=== PATIENT | female | born 1930 | race Caucasian/White ===

== ENCOUNTER → 2017-07-02 | Outpatient (CLI) | payer MEDICARE, BC ==
--- NOTE | 2017-07-02 15:31 | US ---
EXAMINATION TYPE: US kidneys/renal and bladder DATE OF EXAM: 07/02/2017 COMPARISON: US 03/08/2014 CLINICAL HISTORY: N39.0 Urinary Tract Infection. EXAM MEASUREMENTS: Right Kidney: 10.2 x 3.5 x 4.3 cm Left Kidney: 11.0 x 3.5 x 4.4 cm Post Void Residual Volume: 33.9 mL Right Kidney: Nodular contour. Pelvocaliectasis is noted without sheldon hydronephrosis. This finding i s unchanged in comparison to the prior of 03/08/2014. No cystic or solid mass visualized Left Kidney: Nodular contour. Cyst visualized lower pole measuring 1.4 x 1.5 x 1.2 cm Bladder: wnl Bilateral Jets seen: Yes Normal Post Void Residual: Yes IMPRESSION: 1.5 cm left renal cyst, similar to the exam of 03/08/2014. Right-sided pelvocaliectasis is also unchan ged dating back to 2013. No evidence of hydronephrosis or nephrolithiasis.
== END | disposition home or self-care (01) ==
LOC: RADUSWWP 12:28
PROVIDERS: ATTEND Urology
DX: N28.1 Cyst of kidney, acquired (principal); N28.89 Other specified disorders of kidney and ureter; Z87.440 Personal history of urinary (tract) infections
CPT/HCPCS: 76770

== ENCOUNTER → 2017-10-29 | Outpatient (CLI) | payer MEDICARE, BC ==
--- NOTE | 2017-10-30 10:39 | MM ---
Reason for exam: screening (asymptomatic). Last mammogram was performed 1 year and 4 months ago. History: Patient is postmenopausal. Benign excisional biopsy of the right breast, 2003. Took estrogen for 18 years beginning at age 55. Physical Findings: A clinical breast exam by your physician is recommended on an annual basis and results should be correlated with mammographic findings. MG 3D Screening Mammo W/Cad Bilateral CC and MLO view(s) were taken. Prior study comparison: July 15, 2016, bilateral MG 3d screening mammo w/cad. July 13, 2015, bilateral MG screening mammo w CAD. The breast tissue is heterogeneously dense. This may lower the sensitivity of mammography. Stable benign calcifications. There is no discrete abnormality. No significant changes when compared with prior studies. ASSESSMENT: Benign, BI-RAD 2 RECOMMENDATION: Routine screening mammogram of both breasts in 1 year.
== END | disposition home or self-care (01) ==
LOC: RADMAMWWP 10:50
PROVIDERS: ATTEND Internal Medicine
DX: Z12.31 Encounter for screening mammogram for malignant neoplasm of breast (principal)
CPT/HCPCS: 77063; 77067

== ENCOUNTER → 2018-01-21 | Outpatient (CLI) | payer MEDICARE, BC ==
--- NOTE | 2018-01-21 14:03 | US ---
EXAMINATION TYPE: US kidneys/renal and bladder DATE OF EXAM: 01/21/2018 COMPARISON: US 07/02/17 and exam of 2013 CLINICAL HISTORY: N18.3 chronic kidney disease stage 3. EXAM MEASUREMENTS: Right Kidney: 10.1 x 4.3 x 3.8 cm Left Kidney: 12.0 x 4.0 x 3.7 cm Post Void Residual Volume: 32.2 mL Right Kidney: Mildly dilated renal pelvis seen dating back to 2013. Left Kidney: Lower, Lateral cyst = 1.6 x 1.3 x 1.5 cm as seen on the prior exam measuring 1.5 x 1.2 x 1.4 cm at that time. Mildly dilated renal pelvis. Bladder: wnl Bilateral Jets seen: Yes Normal Post Void Residual: Yes No nephrolithiasis is seen. The urinary bladder is anechoic. Bilateral ureteral jets are seen. IMPRESSION: Overall stable left renal cyst and right pelvic caliectasis dealing back to 2013 with new left-sided pelvocaliectasis and no discrete hydronephrosis.
== END | disposition home or self-care (01) ==
LOC: RADUSWWP 12:29
PROVIDERS: ATTEND Internal Medicine Nephrology
DX: N28.1 Cyst of kidney, acquired (principal); N28.89 Other specified disorders of kidney and ureter; N18.3 Chronic kidney disease, stage 3 (moderate)
CPT/HCPCS: 76770

== ENCOUNTER 2018-10-28 12:58 | Emergency (ER) | payer MEDICARE, BC ==
[2018-10-28 13:05] VITALS: RESP 18
[2018-10-28] MEDS ORDERED: SODIUM CHLORIDE 0.9% 500 ML 500 ML IV STA (13:17)
[2018-10-28 13:48] LABS: Basophils % (A) 1 %; Eosinophils # (A) 0.1 k/uL (0-0.7); Eosinophils % (A) 3 %; HCT 36.8 % (34.0-46.0); HGB 11.9 gm/dL (11.4-16.0); Lymphocytes # (A) 0.8 k/uL (1.0-4.8); Lymphocytes % (A) 19 %; MCHC 32.4 g/dL (31.0-37.0); MCV 89.4 fL (80.0-100.0); Mean Platelet Volume 7.5; Monocytes # (A) 0.3 k/uL (0-1.0); Monocytes % (A) 7 %; Neutrophils # (A) 2.9 k/uL (1.3-7.7); Neutrophils % (A) 67 %; Platelet Count 121 k/uL (150-450); RBC 4.12 m/uL (3.80-5.40); RDW 13.8 % (11.5-15.5); WBC 4.3 k/uL (3.8-10.6)
--- NOTE | 2018-10-28 13:54 | ED ---
Weakness HPI - General Chief complaint: Weakness Stated complaint: Fall,high bp Time Seen by Provider: 10/28/18 13:09 Source: patient, family, RN notes reviewed Mode of arrival: wheelchair Limitations: physical limitation - History of Present Illness Initial comments: 87-year-old female presents emergency Department for near syncopal event. Patient states she was upstairs seen her advised to her brother who just . She states that she became very weakened and legs and states that family members lowered her down. Patient no loss conscious. She denies any current chest pain, shortness breath, headache, dizziness, nausea vomiting. She states that she feels completely normal and this time. She did state that she was very worked up at that time. - Related Data Home Medications Medication Instructions Recorded Confirmed Aspirin 81 mg PO DAILY 02/03/15 10/28/18 Atenolol [Tenormin] 50 mg PO BID 02/03/15 10/28/18 Ipratropium/Albuterol Sulfate 1 puff INHALATION RT-QID 02/03/15 10/28/18 [Combivent Respimat Inhaler] Lactobacillus Acidophilus 1 tab PO DAILY 02/03/15 10/28/18 [Acidophilus] Levothyroxine Sodium [Synthroid] 100 mcg PO DAILY 02/03/15 10/28/18 Montelukast [Singulair] 10 mg PO DAILY 02/03/15 10/28/18 Multivitamins, Thera [Theragran] 1 tab PO DAILY 02/03/15 10/28/18 Fish Oil/Dha/Epa [Fish Oil 1,200 1 cap PO DAILY 10/28/18 10/28/18 mg Fish Oil] Fluticasone/Salmeterol [Advair 1 inhalation PO RT-BID 10/28/18 10/28/18 500-50 Diskus] Allergies Allergy/AdvReac Type Severity Reaction Status Date / Time Sulfa (Sulfonamide Allergy Unknown Verified 10/28/18 13:05 Antibiotics) Review of Systems ROS Statement: Those systems with pertinent positive or pertinent negative responses have been documented in the HPI. ROS Other: All systems not noted in ROS Statement are negative. Past Medical History Past Medical History: Asthma, Diabetes Mellitus, Hypertension, Thyroid Disorder History of Any Multi-Drug Resistant Organisms: None Reported Past Surgical History: Hysterectomy Past Psychological History: No Psychological Hx Reported Smoking Status: Never smoker Past Alcohol Use History: None Reported Past Drug Use History: None Reported General Exam Limitations: physical limitation General appearance: alert, in no apparent distress Head exam: Present: atraumatic, normocephalic, normal inspection Eye exam: Present: normal appearance, PERRL, EOMI. Absent: scleral icterus, conjunctival injection, periorbital swelling ENT exam: Present: normal exam, normal oropharynx, mucous membranes moist Neck exam: Present: normal inspection, full ROM. Absent: tenderness, meningismus, lymphadenopathy Respiratory exam: Present: normal lung sounds bilaterally. Absent: respiratory distress, wheezes, rales, rhonchi, stridor Cardiovascular Exam: Present: regular rate, normal rhythm, normal heart sounds. Absent: systolic murmur, diastolic murmur, rubs, gallop, clicks Neurological exam: Present: alert, oriented X3, CN II-XII intact, reflexes normal. Absent: motor sensory deficit Skin exam: Present: warm, dry, intact, normal color. Absent: rash Course Vital Signs 10/28/18 13:01 Temperature 98.3 F Pulse Rate 61 Respiratory 18 Rate Blood Pressure 185/86 O2 Sat by Pulse 97 Oximetry EKG Findings - EKG Comments: EKG Findings:: EKG performed at 13:25 sinus bradycardia with PAC, rate of 57 WA 162 QRS 86 QT/QTC 450/[address] elevation or depression. Medical Decision Making - Medical Decision Making 87-year-old female presented for near syncopal episode after a loss in the family. Family reports that this is happened several times recently with a in the family. Patient is asymptomatic in emergency department. Laboratory, EKG unremarkable. - Lab Data Result diagrams: 10/28/18 13:20 10/28/18 13:20 Lab Results 10/28/18 10/28/18 10/28/18 Range/Units 13:20 13:20 13:20 WBC 4.3 (3.8-10.6) k/uL RBC 4.12 (3.80-5.40) m/uL Hgb 11.9 (11.4-16.0) gm/dL Hct 36.8 (34.0-46.0) % MCV 89.4 (80.0-100.0) fL MCH 29.0 (25.0-35.0) pg MCHC 32.4 (31.0-37.0) g/dL RDW 13.8 (11.5-15.5) % Plt Count 121 L (150-450) k/uL Neutrophils % 67 % Lymphocytes % 19 % Monocytes % 7 % Eosinophils % 3 % Basophils % 1 % Neutrophils # 2.9 (1.3-7.7) k/uL Lymphocytes # 0.8 L (1.0-4.8) k/uL Monocytes # 0.3 (0-1.0) k/uL Eosinophils # 0.1 (0-0.7) k/uL Basophils # 0.0 (0-0.2) k/uL PT 10.7 (9.0-12.0) sec INR 1.0 (<1.2) APTT 26.0 (22.0-30.0) sec Sodium 138 (137-145) mmol/L Potassium 4.8 (3.5-5.1) mmol/L Chloride 104 (98-107) mmol/L Carbon Dioxide 24 (22-30) mmol/L Anion Gap 10 mmol/L BUN 31 H (7-17) mg/dL Creatinine 1.15 H (0.52-1.04) mg/dL Est GFR (CKD-EPI)AfAm 50 (>60 ml/min/1.73 sqM) Est GFR (CKD-EPI)NonAf 44 (>60 ml/min/1.73 sqM) Glucose 134 H (74-99) mg/dL Calcium 9.9 (8.4-10.2) mg/dL Magnesium 2.0 (1.6-2.3) mg/dL Total Bilirubin 0.5 (0.2-1.3) mg/dL AST 26 (14-36) U/L ALT 31 (9-52) U/L Alkaline Phosphatase 68 (38-126) U/L Troponin I (0.000-0.034) ng/mL Total Protein 7.2 (6.3-8.2) g/dL Albumin 4.3 (3.5-5.0) g/dL Urine Color Urine Appearance (Clear) Urine pH (5.0-8.0) Ur Specific [place] (1.001-1.035) Urine Protein (Negative) Urine Glucose (UA) (Negative) Urine Ketones (Negative) Urine Blood (Negative) Urine Nitrite (Negative) Urine Bilirubin (Negative) Urine Urobilinogen (<2.0) mg/dL Ur Leukocyte Esterase (Negative) 10/28/18 10/28/18 Range/Units 13:20 13:54 WBC (3.8-10.6) k/uL RBC (3.80-5.40) m/uL Hgb (11.4-16.0) gm/dL Hct (34.0-46.0) % MCV (80.0-100.0) fL MCH (25.0-35.0) pg MCHC (31.0-37.0) g/dL RDW (11.5-15.5) % Plt Count (150-450) k/uL Neutrophils % % Lymphocytes % % Monocytes % % Eosinophils % % Basophils % % Neutrophils # (1.3-7.7) k/uL Lymphocytes # (1.0-4.8) k/uL Monocytes # (0-1.0) k/uL Eosinophils # (0-0.7) k/uL Basophils # (0-0.2) k/uL PT (9.0-12.0) sec INR (<1.2) APTT (22.0-30.0) sec Sodium (137-145) mmol/L Potassium (3.5-5.1) mmol/L Chloride (98-107) mmol/L Carbon Dioxide (22-30) mmol/L Anion Gap mmol/L BUN (7-17) mg/dL Creatinine (0.52-1.04) mg/dL Est GFR (CKD-EPI)AfAm (>60 ml/min/1.73 sqM) Est GFR (CKD-EPI)NonAf (>60 ml/min/1.73 sqM) Glucose (74-99) mg/dL Calcium (8.4-10.2) mg/dL Magnesium (1.6-2.3) mg/dL Total Bilirubin (0.2-1.3) mg/dL AST (14-36) U/L ALT (9-52) U/L Alkaline Phosphatase (38-126) U/L Troponin I <0.012 (0.000-0.034) ng/mL Total Protein (6.3-8.2) g/dL Albumin (3.5-5.0) g/dL Urine Color Light Yellow Urine Appearance Clear (Clear) Urine pH 7.0 (5.0-8.0) Ur Specific [place] 1.003 (1.001-1.035) Urine Protein Negative (Negative) Urine Glucose (UA) Negative (Negative) Urine Ketones Negative (Negative) Urine Blood Negative (Negative) Urine Nitrite Negative (Negative) Urine Bilirubin Negative (Negative) Urine Urobilinogen <2.0 (<2.0) mg/dL Ur Leukocyte Esterase Negative (Negative) Disposition Clinical Impression: Stress reaction, Near syncope Disposition: HOME SELF-CARE Condition: Stable Instructions (If sedation given, give patient instructions): Stress (ED) Additional Instructions: Please return to the Emergency Department if symptoms worsen or any other concerns. Is patient prescribed a controlled substance at d/c from ED?: No Referrals: Robert Ramírez MD [Primary Care Provider] - 1-2 days Time of Disposition: 15:28
[2018-10-28 13:56] LABS: Prothrombin Time 10.7 sec (9.0-12.0)
[2018-10-28 14:03] LABS: Albumin 4.3 g/dL (3.5-5.0); Calcium 9.9 mg/dL (8.4-10.2); Potassium 4.8 mmol/L (3.5-5.1); Total Bilirubin 0.5 mg/dL (0.2-1.3); Total Protein 7.2 g/dL (6.3-8.2)
[2018-10-28 14:10] LABS: Appearance,Urine Clear (Clear); Bilirubin,Urine Negative (Negative); Blood,Urine Negative (Negative); Color,Urine Light Yellow; Glucose,Urine (UA) Negative (Negative); Ketones,Urine Negative (Negative); Leukocyte Esterase,Urine Negative (Negative); Nitrite,Urine Negative (Negative); Protein,Urine Negative (Negative); Specific Gravity,Urine 1.003 (1.001-1.035); Urobilinogen,Urine <2.0 mg/dL (<2.0)
[2018-10-28 15:46] VITALS: BP 157/90; PULSE 71; TEMP 98.9
== END 2018-10-28 15:46 | disposition home or self-care (01) ==
LOC: EC 12:58
DX: F43.9 Reaction to severe stress, unspecified (principal); R55 Syncope and collapse; R53.1 Weakness; R00.1 Bradycardia, unspecified; J45.909 Unspecified asthma, uncomplicated; I10 Essential (primary) hypertension; E07.9 Disorder of thyroid, unspecified; E11.9 Type 2 diabetes mellitus without complications; Z79.51 Long term (current) use of inhaled steroids; Z79.82 Long term (current) use of aspirin; Z79.890 Hormone replacement therapy; Z79.899 Other long term (current) drug therapy; Z88.2 Allergy status to sulfonamides
CPT/HCPCS: 36415; 80053; 81003; 83735; 84484; 85025; 85610; 85730; 93005; 99285

== ENCOUNTER → 2018-11-18 | Outpatient (CLI) | payer MEDICARE, BC ==
--- NOTE | 2018-11-27 12:54 | HM ---
HOLTER MONITOR REPORT The patient in her diary had mostly activities but did not have any major symptoms. Predominant rhythm appears to be sinus with a heart rate ranging from 44 to 92 beats per minute with average heart rate of 59 beats per minute. There are several episodes of what seems to be isolated PACs and PVCs with short runs of PAT as well . The PAT runs of about 3 to 4 beats in a row. No major symptoms were reported. FINAL IMPRESSION: Predominant rhythm is sinus with average heart rate of 59 beats per minute. There are isolated PACs and PVCs with a few short runs of PAT of about 3 to 4 beats in a row. Overall unremarkable 24 hour DCG recording. MMODL / IJN: [id number] /
== END | disposition home or self-care (01) ==
LOC: RADECHMAIN 12:42
PROVIDERS: ATTEND Family Medicine
DX: R55 Syncope and collapse (principal)
CPT/HCPCS: 93225; 93226

== ENCOUNTER 2019-08-13 08:42 | Inpatient (IN) | payer MEDICARE, BC ==
[2019-08-13] MEDS ORDERED: SODIUM CHLORIDE 0.9% 1,000 ML IV STA (08:52)
[2019-08-13] MEDS ORDERED: DILTIAZEM DRIP BOLUS FROM BAG 1 MG SOLN IV ONE (08:54)
[2019-08-13 09:00] VITALS: RESP 18
[2019-08-13] MEDS ORDERED: DILTIAZEM 125 MG in SODIUM CHLORIDE 0.9% 100 ML IV SCH (09:00)
[2019-08-13] MEDS ORDERED: AMIODARONE 360 MG in DEXTROSE 5% IN WATER 200 ML IV ONE ×2 (09:09)
[2019-08-13] MEDS ORDERED: DEXTROSE 5% IN WATER 100 ML with AMIODARONE 150 MG IV ONE (09:10)
[2019-08-13] MEDS ORDERED: HEPARIN SODIUM,PORCINE 5,000 UNIT/ML 1 ML VIAL IV ONE (09:14)
[2019-08-13] MEDS ORDERED: HEPARIN SODIUM,PORCINE 5,000 UNIT/ML 1 ML VIAL IV PRN (09:14)
[2019-08-13 09:19] LABS: Basophils % (A) 0 %; Eosinophils % (A) 1 %; HCT 31.4 % (34.0-46.0); HGB 10.9 gm/dL (11.4-16.0); Lymphocytes # (A) 0.2 k/uL (1.0-4.8); Lymphocytes % (A) 5 %; MCH 30.5 pg (25.0-35.0); MCHC 34.7 g/dL (31.0-37.0); MCV 87.7 fL (80.0-100.0); Mean Platelet Volume 8.2; Monocytes # (A) 0.2 k/uL (0-1.0); Monocytes % (A) 6 %; Neutrophils # (A) 2.6 k/uL (1.3-7.7); Neutrophils % (A) 84 %; Platelet Count 125 k/uL (150-450); RBC 3.59 m/uL (3.80-5.40); RDW 13.7 % (11.5-15.5); WBC 3.1 k/uL (3.8-10.6)
[2019-08-13 09:23] LABS: Albumin 3.4 g/dL (3.5-5.0); Calcium 8.4 mg/dL (8.4-10.2); Magnesium 1.7 mg/dL (1.6-2.3); Total Bilirubin 0.7 mg/dL (0.2-1.3)
--- NOTE | 2019-08-13 09:29 | ED ---
General Adult HPI - General Chief complaint: Chest Pain Stated complaint: chest pain Time Seen by Provider: 08/13/19 08:50 Source: patient, EMS Mode of arrival: EMS Limitations: physical limitation - History of Present Illness Initial comments: Dictation was produced using [employer] dictation software. please excuse any grammatical, word or spelling errors. Chief Complaint: 88-year-old female brought in by EMS for chest pain History of Present Illness: 88-year-old female presents today via EMS for chest pain. Patient was recently seen at [facility] for nausea and vomiting. Patient was discharged at that time after receiving Zofran. She had just gotten home from [facility] when she began experiencing some chest pain. EMS was called. Patient was found to be in atrial fibrillation. Patient is a limited historian. She reports that she has some mild anterior chest pain. Denies any worsening with deep inspiration. Denies any lower extremity pain or swelling. She does not report any history of blood clots. She does feel mildly short of breath The ROS documented in this emergency department record has been reviewed and confirmed by me. Those systems with pertinent positive or negative responses have been documented in the HPI. All other systems are other negative and/or noncontributory. PHYSICAL EXAM: General Impression: Alert and oriented x3, lethargic HEENT: Normocephalic atraumatic, extra-ocular movements intact, pupils equal and reactive to light bilaterally, mucous membranes moist. Cardiovascular: Tachycardic, irregular Chest: Lungs clear to auscultation bilaterally, no rhonchi, no wheeze, no rales Abdomen: Bowel sounds present, abdomen soft, non-tender, non-distended, no organomegaly Musculoskeletal: Pulses present and equal in all extremities, no peripheral edema, no asymmetrical leg girth Motor: no focal deficits noted Neurological: CN II-XII grossly intact, no focal motor or sensory deficits noted Skin: Intact with no visualized rashes Psych: Normal affect and mood ED course: 88-year-old female presents with clinical presentation of atrial fibrillation with rapid ventricular rate. On arrival shows heart rate of 124, rest of vital signs within acceptable limits. Patient was accepted to emergency department initially evaluated resuscitation bay. She was found to be tachy cardic bouncing from the 120s to the 170s. Monitor showed irregular rate. EKG shows A. fib with rapid ventricular rate. Patient denies any history of atrial fibrillation. She denies taking any anticoagulation medications. Patient's blood pressure was waxing and waning. She did have some readings with systolic in the 80s. Patient was started on amiodarone for atrial fibrillation rapid ventricular rate. She started on heparin. After several minutes of the amiodarone patient converted to normal sinus rhythm. Repeat EKG shows normal sinus rhythm with a rate of 68. Blood pressures are stable.Laboratory evaluation obtained. Leukopenia 3.1. Lites: 25. Hemoglobin 10.9. Cardiac panel unremarkable. Metabolic panel within acceptable limits. Cardiac enzymes negative. Computed tomography scan of the chest does not demonstrate pulmonary embolism however there is hilar adenopathy. Patient reevaluated at bedside and she is stable. She is currently on heparin patient be admitted to Dr. Cuello's service. Will be consulted. EKG interpretation: Ventricular rate 144, A. fib with RVR, QRS 84, QTc 504. No TX prolongation, no QTC prolongation, no ST or T-wave changes noted. EKG comp ared to October 28 2018 showing no changes. Overall, this EKG is unremarkable - Related Data Home Medications Medication Instructions Recorded Confirmed Aspirin 81 mg PO HS 02/03/15 08/13/19 Atenolol [Tenormin] 50 mg PO BID 02/03/15 08/13/19 Ipratropium/Albuterol Sulfate 1 puff INHALATION RT-QID 02/03/15 08/13/19 [Combivent Respimat Inhaler] Levothyroxine Sodium [Synthroid] 100 mcg PO DAILY 02/03/15 08/13/19 Montelukast [Singulair] 10 mg PO HS 02/03/15 08/13/19 Multivitamins, Thera [Theragran] 1 tab PO DAILY 02/03/15 08/13/19 Fish Oil/Dha/Epa [Fish Oil 1,200 1 cap PO DAILY 10/28/18 08/13/19 mg Fish Oil] Fluticasone/Salmeterol [Advair 1 puff INHALATION RT-BID 10/28/18 08/13/19 500-50 Diskus] Albuterol Nebulized [Ventolin 2.5 mg INHALATION RT-Q4H PRN 08/13/19 08/13/19 Nebulized] Cyanocobalamin (Vitamin B-12) 1,000 mcg PO DAILY 08/13/19 08/13/19 [Vitamin B-12] Gabapentin [Neurontin] 300 mg PO DAILY 08/13/19 08/13/19 amLODIPine [Norvasc] 2.5 mg PO DAILY 08/13/19 08/13/19 Allergies Allergy/AdvReac Type Severity Reaction Status Date / Time Sulfa (Sulfonamide Allergy Unknown Verified 08/13/19 10:39 Antibiotics) Review of Systems ROS Statement: Those systems with pertinent positive or pertinent negative responses have been documented in the HPI. ROS Other: All systems not noted in ROS Statement are negative. Past Medical History Past Medical History: Asthma, Diabetes Mellitus, Hypertension, Thyroid Disorder History of Any Multi-Drug Resistant Organisms: None Reported Past Surgical History: Hysterectomy Past Psychological History: No Psychological Hx Reported Smoking Status: Never smoker Past Alcohol Use History: None Reported Past Drug Use History: None Reported General Exam Limitations: physical limitation Course Vital Signs 08/13/19 08/13/19 08:55 10:00 Temperature 98.6 F Pulse Rate 124 H 75 Respiratory 18 18 Rate Blood Pressure 101/80 117/66 O2 Sat by Pulse 99 Oximetry Medical Decision Making - Lab Data Result diagrams: 08/13/19 09:00 08/13/19 09:00 Lab Results 08/13/19 08/13/19 08/13/19 Range/Units 09:00 09:00 09:00 WBC 3.1 L (3.8-10.6) k/uL RBC 3.59 L (3.80-5.40) m/uL Hgb 10.9 L (11.4-16.0) gm/dL Hct 31.4 L (34.0-46.0) % MCV 87.7 (80.0-100.0) fL MCH 30.5 (25.0-35.0) pg MCHC 34.7 (31.0-37.0) g/dL RDW 13.7 (11.5-15.5) % Plt Count 125 L (150-450) k/uL Neutrophils % 84 % Lymphocytes % 5 % Monocytes % 6 % Eosinophils % 1 % Basophils % 0 % Neutrophils # 2.6 (1.3-7.7) k/uL Lymphocytes # 0.2 L (1.0-4.8) k/uL Monocytes # 0.2 (0-1.0) k/uL Eosinophils # 0.0 (0-0.7) k/uL Basophils # 0.0 (0-0.2) k/uL PT (9.0-12.0) sec INR (<1.2) APTT (22.0-30.0) sec D-Dimer (<0.60) mg/L FEU Sodium 138 (137-145) mmol/L Potassium 4.0 (3.5-5.1) mmol/L Chloride 108 H (98-107) mmol/L Carbon Dioxide 20 L (22-30) mmol/L Anion Gap 10 mmol/L BUN 32 H (7-17) mg/dL Creatinine 1.13 H (0.52-1.04) mg/dL Est GFR (CKD-EPI)AfAm 51 (>60 ml/min/1.73 sqM) Est GFR (CKD-EPI)NonAf 44 (>60 ml/min/1.73 sqM) Glucose 193 H (74-99) mg/dL Plasma Lactic Acid [place] 1.9 (0.7-2.0) mmol/L Calcium 8.4 (8.4-10.2) mg/dL Magnesium 1.7 (1.6-2.3) mg/dL Total Bilirubin 0.7 (0.2-1.3) mg/dL AST 23 (14-36) U/L ALT 18 (4-34) U/L Alkaline Phosphatase 43 (38-126) U/L Troponin I (0.000-0.034) ng/mL Total Protein 6.0 L (6.3-8.2) g/dL Albumin 3.4 L (3.5-5.0) g/dL 08/13/19 08/13/19 Range/Units 09:00 09:00 WBC (3.8-10.6) k/uL RBC (3.80-5.40) m/uL Hgb (11.4-16.0) gm/dL Hct (34.0-46.0) % MCV (80.0-100.0) fL MCH (25.0-35.0) pg MCHC (31.0-37.0) g/dL RDW (11.5-15.5) % Plt Count (150-450) k/uL Neutrophils % % Lymphocytes % % Monocytes % % Eosinophils % % Basophils % % Neutrophils # (1.3-7.7) k/uL Lymphocytes # (1.0-4.8) k/uL Monocytes # (0-1.0) k/uL Eosinophils # (0-0.7) k/uL Basophils # (0-0.2) k/uL PT 11.5 (9.0-12.0) sec INR 1.1 (<1.2) APTT 26.9 (22.0-30.0) sec D-Dimer 0.97 H (<0.60) mg/L FEU Sodium (137-145) mmol/L Potassium (3.5-5.1) mmol/L Chloride (98-107) mmol/L Carbon Dioxide (22-30) mmol/L Anion Gap mmol/L BUN (7-17) mg/dL Creatinine (0.52-1.04) mg/dL Est GFR (CKD-EPI)AfAm (>60 ml/min/1.73 sqM) Est GFR (CKD-EPI)NonAf (>60 ml/min/1.73 sqM) Glucose (74-99) mg/dL Plasma Lactic Acid [place] (0.7-2.0) mmol/L Calcium (8.4-10.2) mg/dL Magnesium (1.6-2.3) mg/dL Total Bilirubin (0.2-1.3) mg/dL AST (14-36) U/L ALT (4-34) U/L Alkaline Phosphatase (38-126) U/L Troponin I <0.012 (0.000-0.034) ng/mL Total Protein (6.3-8.2) g/dL Albumin (3.5-5.0) g/dL Critical Care Time Critical Care Time: Yes (31) Disposition Clinical Impression: Afib, Adenopathy Disposition: ADMITTED IP TO THIS [facility] Condition: Fair Referrals: Robert Ramírez MD [Primary Care Provider] - 1-2 days Decision Time: 11:28
[2019-08-13] MEDS: HEPARIN SOD,PORK IN 0.45% NACL 25,000 UNIT in 0.45% NACL 1 250ML.BAG IV SCH (09:30)
[2019-08-13 09:39] LABS: INR 1.1 (<1.2); Partial Thromboplastin Time 26.9 sec (22.0-30.0); Prothrombin Time 11.5 sec (9.0-12.0)
[2019-08-13 09:59] LABS: D-Dimer 0.97 mg/L FEU (<0.60)
--- NOTE | 2019-08-13 10:08 | XR ---
EXAMINATION TYPE: XR chest 1V portable DATE OF EXAM: 08/13/2019 COMPARISON: 02/03/2015 INDICATION: Short of breath, chest discomfort TECHNIQUE: Single frontal view of the chest is obtained. FINDINGS: The heart size is normal. The pulmonary vasculature is normal. The lungs are clear. Scoliosis within the thoracic spine. IMPRESSION: 1. No suspicious acute abnormality.
--- NOTE | 2019-08-13 10:27 | CT ---
CT CHEST FOR PULMONARY EMBOLISM. EXAMINATION TYPE: CT angio chest DATE OF EXAM: 08/13/2019 INDICATION: Chest pain, PAVITHRA CT DLP: 272.4 mGycm, Automated exposure control for dose reduction was used. CONTRAST: Patient injected with 80 ml mL of Isovue 370. COMPARISON: None TECHNIQUE: CT of the chest is performed on a spiral scan at 2 mm thick sections. Study is performed with intravenous contrast timed for evaluation for pulmonary embolism. This will limit additional po rtions of the evaluation. 3-D MIP images reconstructed by the technologist are reviewed on the compu ter in the coronal and sagittal planes. FINDINGS: No persistent filling defects are evident to suggest an acute pulmonary embolism. A 1.4 cm aortopulmonic window lymph node is present series 401 image 47. Additional smaller mediastin al lymph nodes are present. There may be some inferior hilar adenopathy bilaterally. This may measure up to 1.4 cm on the left, series 401 image 67 and 1.1 cm on the right series 401 image 83. The ascen ding aorta diameter at the level of the main pulmonary artery is 3.9 cm. The main pulmonary artery d iameter at the bifurcation is 3.0 cm. Minimal compressive atelectasis may be within the dependent lung bases. Limited CT section through the upper abdomen are unremarkable. Small hiatal hernia is present. Portio n of the thyroid within the [id number] is unremarkable. IMPRESSIONS: 1. No acute pulmonary embolism. 2. Mediastinal and hilar adenopathy discussed above. Consider follow-up PET scan.
[2019-08-13] MEDS ORDERED: NALOXONE 0.4 MG/ML 1 ML VIAL IV PRN (11:29)
[2019-08-13] MEDS ORDERED: ONDANSETRON 4 MG/2 ML VIAL IVP PRN (11:29)
[2019-08-13] MEDS ORDERED: ACETAMINOPHEN TAB 325 MG TAB PO PRN (11:29)
[2019-08-13] MEDS ORDERED: SODIUM CHLORIDE 0.9% 1,000 ML IV SCH (11:30)
[2019-08-13] MEDS ORDERED: ALBUTEROL NEBULIZED 2.5 MG/3 ML INHALATION PRN (12:37)
[2019-08-13] MEDS: DILTIAZEM ORAL 30 MG TAB PO SCH ×2 (15:44→20:01)
[2019-08-13] MEDS: SODIUM CHLORIDE 0.9% 1,000 ML IV SCH (15:45)
[2019-08-13] MEDS: AMIODARONE 300 MG in DEXTROSE 5% IN WATER 250 ML IV SCH ×4 (16:32→16:35)
[2019-08-13] MEDS: SYMBICORT 160-4.5 MCG INHALER INHALATION SCH (19:57)
[2019-08-13] MEDS: ASPIRIN 81 MG PO SCH (20:00)
[2019-08-13] MEDS: ATENOLOL 50 MG TAB PO SCH (20:00)
[2019-08-13] MEDS: MONTELUKAST 10 MG TAB PO SCH (20:00)
--- NOTE | 2019-08-13 22:51 | P.HPIM ---
History of Present Illness H&P Date: 08/13/19 88 years old female patient of Dr. Ramírez with past medical history of asthma, diabetes, hypertension, hypothyroidism comes in with a new onset atrial fibrillation and chest pain. Patient was noted to be in atrial fibrillation heart rate of 120 running up to 170. Initiated on amiodarone drip since patient had no improvement in her heart rate on diltiazem. Patient converted to sinus rhythm on amiodarone, with improvement in heart rate and the chest pain. Vitals otherwise patient is afebrile, respiratory rate is 18 blood pressure is 101/80 saturating 99% on room air on evaluation blood work patient has a WBC of 3.1 hemoglobin 10.9 close to patient's baseline of 11.9, platelets 125 d-dimer 0.97, BNP suggestive BUN 32 chloride 1.13 which is patient's baseline GFR 50, glucose 193, troponin 1 is negative CTA was done that was negative for pulmonary embolism patient did have some mediastinal and hilar lymphadenopathy which needs follow-up with a PET scan Review of Systems Constitutional: Denies chills, Denies fever, Denies lethargy, Denies malaise, Denies poor appetite, Denies weakness, Denies weight loss Eyes: denies decreased vision, denies diplopia, denies discharge, denies pain Ears: deny: decreased hearing Ears, nose, mouth and throat: Denies dental pain, Denies headache, Denies nasal discharge, Denies nose pain Cardiovascular: Endorses chest pain, endorses decreased exercise tolerance, Denies edema, Denies high blood pressure, Denies irregular heart beat, Denies palpitations, Denies paroxysmal nocturnal dyspnea, Denies rapid heart beat, Denies shortness of breath Respiratory: Denies congestion, Denies cough, Denies cough with sputum, Denies dyspnea, Denies home oxygen, Denies wheezing Gastrointestinal: Denies abdominal pain, Denies change in bowel habits, Denies coffee ground emesis, Denies early satiety, Denies excessive gas, Denies heartburn, Denies hematemesis, Denies hematochezia, Denies loss of appetite, endorses nausea and vomiting Genitourinary: Denies dysuria, Denies flank pain, Denies kidney stones, Denies menorrhagia, Denies urgency, Denies urinary frequency Musculoskeletal: Denies gait dysfunction, Denies limitation of motion, Denies morning stiffness, Denies muscle cramps Integumentary: Denies rash, Denies wounds, Denies brittle nails, Denies change in hair/nails, Denies darkening of skin Neurological: Denies balance difficulties, Denies change in speech, Denies double vision, Denies gait dysfunction, Denies loss of vision, Denies motor disturbance, Denies numbness, Denies paralysis, Denies paresthesias, Denies seizures Psychiatric: Denies anxiety, Denies depression Endocrine: Denies excessive sweating, Denies excessive thirst, Denies high blood sugars, Denies palpitations Hematologic/Lymphatic: Denies easy bruising, Denies lymphadenopathy Past Medical History Past Medical History: Asthma, Diabetes Mellitus, Hypertension, Thyroid Disorder History of Any Multi-Drug Resistant Organisms: None Reported Past Surgical History: Hysterectomy Past Psychological History: No Psychological Hx Reported Smoking Status: Never smoker Past Alcohol Use History: None Reported Past Drug Use History: None Reported Medications and Allergies Home Medications Medication Instructions Recorded Confirmed Type Aspirin 81 mg PO HS 02/03/15 08/13/19 History Atenolol [Tenormin] 50 mg PO BID 02/03/15 08/13/19 History Ipratropium/Albuterol Sulfate 1 puff INHALATION RT-QID 02/03/15 08/13/19 History [Combivent Respimat Inhaler] Levothyroxine Sodium [Synthroid] 100 mcg PO DAILY 02/03/15 08/13/19 History Montelukast [Singulair] 10 mg PO HS 02/03/15 08/13/19 History Multivitamins, Thera [Theragran] 1 tab PO DAILY 02/03/15 08/13/19 History Fish Oil/Dha/Epa [Fish Oil 1,200 1 cap PO DAILY 10/28/18 08/13/19 History mg Fish Oil] Fluticasone/Salmeterol [Advair 1 puff INHALATION RT-BID 10/28/18 08/13/19 Hi story 500-50 Diskus] Albuterol Nebulized [Ventolin 2.5 mg INHALATION RT-Q4H PRN 08/13/19 08/13/19 History Nebulized] Cyanocobalamin (Vitamin B-12) 1,000 mcg PO DAILY 08/13/19 08/13/19 History [Vitamin B-12] Gabapentin [Neurontin] 300 mg PO DAILY 08/13/19 08/13/19 History amLODIPine [Norvasc] 2.5 mg PO DAILY 08/13/19 08/13/19 History Allergies Allergy/AdvReac Type Severity Reaction Status Date / Time Sulfa (Sulfonamide Allergy Unknown Verified 08/13/19 10:39 Antibiotics) Physical Exam Vitals: Vital Signs Temp Pulse Resp BP Pulse Ox 08/13/19 10:00 75 18 117/66 08/13/19 08:55 98.6 F 124 H 18 101/80 99 Intake and Output 08/12/19 08/13/19 08/13/19 22:59 06:59 14:59 Other: Weight 79.107 kg - Constitutional General appearance: cooperative, no acute distress, obese - EENT Eyes: anicteric sclerae, PERRLA, normal appearance ENT: hearing grossly normal - Neck Neck: no lymphadenopathy, normal ROM, no other, no rigidity, no stridor, no thyromegaly - Respiratory Respiratory: bilateral: CTA, negative: diminished, dullness, rales, rhonchi - Cardiovascular Rhythm: regular Heart sounds: normal: S1, S2 Abnormal Heart Sounds: no systolic murmur, no diastolic murmur, no rub, no S3 Gallop, no S4 Gallop, no click, no other - Gastrointestinal General gastrointestinal: normal bowel sounds, soft - Integumentary Integumentary: no rash - Neurologic Neurologic: CNII-XII intact - Musculoskeletal Musculoskeletal: gait normal, strength equal bilaterally - Psychiatric Psychiatric: A&O x's 3, appropriate affect Results CBC & Chem 7: 08/13/19 09:00 08/13/19 09:00 Labs: Abnormal Lab Results - Last 24 Hours (Table) 08/13/19 08/13/19 08/13/19 Range/Units 09:00 09:00 09:00 WBC 3.1 L (3.8-10.6) k/uL RBC 3.59 L (3.80-5.40) m/uL Hgb 10.9 L (11.4-16.0) gm/dL Hct 31.4 L (34.0-46.0) % Plt Count 125 L (150-450) k/uL Lymphocytes # 0.2 L (1.0-4.8) k/uL D-Dimer 0.97 H (<0.60) mg/L FEU Chloride 108 H (98-107) mmol/L Carbon Dioxide 20 L (22-30) mmol/L BUN 32 H (7-17) mg/dL Creatinine 1.13 H (0.52-1.04) mg/dL Glucose 193 H (74-99) mg/dL Total Protein 6.0 L (6.3-8.2) g/dL Albumin 3.4 L (3.5-5.0) g/dL Thrombosis Risk Factor Assmnt - DVT/VTE Prophylaxis DVT/VTE Prophylaxis: Pharmacologic Prophylaxis ordered Assessment and Plan Plan: #1 acute anterior chest pain troponin 3, EKG with A. fib with RVR. Likely secondary to atrial fibrillation. Cardiology consulted to rule out ACS. Continue heparin drip continue aspirin continue atenolol. Lipid panel ordered #2 A. fib with RVR Cardizem initiated at 30 mg 3 times a day. Continue amio darone drip until seen by cardiology #3 type 2 diabetes currently diet controlled #4 asthma stable continue DuoNeb as needed for shortness of breath #5 hypertension hold Norvasc continue atenolol. Cardiology was initiated at 20 mg 3 times a day #6 hypothyroidism continue Synthyroid 100 mg by mouth daily #7 CODE STATUS CODE STATUS full code #8 DVT prophylaxis on heparin #9 disposition patient needs 1-2 inpatient nights for stabilization
[2019-08-14] MEDS: AMIODARONE 300 MG in DEXTROSE 5% IN WATER 250 ML IV SCH ×2 (03:46)
[2019-08-14] MEDS: SODIUM CHLORIDE 0.9% 1,000 ML IV SCH (04:24)
[2019-08-14 06:38] LABS: Glucose,Whole Blood 142 mg/dL (75-99)
[2019-08-14] MEDS: LEVOTHYROXINE 100 MCG TAB PO SCH (06:46)
[2019-08-14] MEDS: INSULIN ASPART (NovoLOG) 100 UNIT/ML VIAL SQ SCH ×4 (06:47→23:06)
[2019-08-14] MEDS: HEPARIN SOD,PORK IN 0.45% NACL 25,000 UNIT in 0.45% NACL 1 250ML.BAG IV SCH (06:48)
[2019-08-14] MEDS: SYMBICORT 160-4.5 MCG INHALER INHALATION SCH ×2 (08:40→20:37)
[2019-08-14] MEDS: GABAPENTIN 300 MG CAP PO SCH (09:32)
[2019-08-14] MEDS: ATENOLOL 50 MG TAB PO SCH ×2 (09:32→20:17)
[2019-08-14] MEDS: DILTIAZEM ORAL 30 MG TAB PO SCH ×3 (09:32→20:18)
[2019-08-14] MEDS: MULTIVITAMINS, THERA 1 EACH TAB PO SCH (09:32)
--- NOTE | 2019-08-14 09:51 | P.CRDCN ---
History of Present Illness Consult date: 08/14/19 Requesting physician: Erin Rainey Consult reason: chest pain, atrial fibrillation Chief complaint: Chest pain, atrial fibrillation History of present illness: This is a pleasant 88 year old female with history of hypertension, diabetes, hyperlipidemia, asthma, hypothyroidism, presented to the hospital with symptoms of chest discomfort, she was found to be in atrial fibrillation with a rapid ventricular response and initiated on IV Cardizem and subsequently IV amiodarone. She converted to normal sinus rhythm on amiodarone and continues at this time to be in a normal sinus rhythm this morning. Initial EKG showed atrial fibrillation with rapid ventricular response and subsequent EKG shows normal sinus rhythm with no acute changes. Chest x-ray on presentation here does not reveal any acute abnormality. CTA of the chest was performed which was negative for pulmonary embolism, a CTA did show some lymph nodes and some inferior hilar and mediastinal adenopathy bilaterally, the ascending aorta measuring 3.9 cm. I pressure on arrival here 100/80 with a heart rate of 124, 9 9% on room air. Afebrile. I pressure this morning 135/70 with a heart rate in the 60s, 95% on room air. Temperature 98.1. White blood cell count 3.1, hemoglobin 10.9, platelet count 125. D-dimer 0.97. Sodium 138, potassium 4.0, BUN 32, creatinine 1.1. Troponin 0.012. At the time of my examination this morning, the patient is resting comfortably in bed. No overt complaints at this time. Past Medical History Past Medical History: Asthma, Diabetes Mellitus, Hypertension, Thyroid Disorder Additional Past Medical History / Comment(s): Seen at [facility] for vomiting, NIDDM type II-diet controlled, neuropathy bilateral feet, CKD stage III, anemia, urinary leakage, bilateral glaucoma, diverticular disease, hypothyroid. History of Any Multi-Drug Resistant Organisms: None Reported Past Surgical History: Hysterectomy Additional Past Surgical History / Comment(s): Hysterectomy then bilateral oophorectomy 10 years later, R benign breast biopsy, bladder sling, bilateral cataract removals/lens implants, colonoscopies. Past Anesthesia/Blood Transfusion Reactions: No Reported Reaction Past Psychological History: No Psychological Hx Reported Smoking Status: Never smoker Past Alcohol Use History: None Reported Past Drug Use History: None Reported - Past Family History Father Family Medical History: Cancer, Coronary Artery Disease (CAD) Additional Family Medical History / Comment(s): Father of CAD. He had prostate cancer. Mother Family Medical History: Cancer Additional Family Medical History / Comment(s): Mother of ovarian cancer. Medications and Allergies Home Medications Medication Instructions Recorded Confirmed Type Aspirin 81 mg PO HS 02/03/15 08/13/19 History Atenolol [Tenormin] 50 mg PO BID 02/03/15 08/13/19 History Ipratropium/Albuterol Sulfate 1 puff INHALATION RT-QID 02/03/15 08/13/19 History [Combivent Respimat Inhaler] Levothyroxine Sodium [Synthroid] 100 mcg PO DAILY 02/03/15 08/13/19 History Montelukast [Singulair] 10 mg PO HS 02/03/15 08/13/19 History Multivitamins, Thera [Theragran] 1 tab PO DAILY 02/03/15 08/13/19 History Fish Oil/Dha/Epa [Fish Oil 1,200 1 cap PO DAILY 10/28/18 08/13/19 History mg Fish Oil] Fluticasone/Salmeterol [Advair 1 puff INHALATION RT-BID 10/28/18 08/13/19 History 500-50 Diskus] Albuterol Nebulized [Ventolin 2.5 mg INHALATION RT-Q4H PRN 08/13/19 08/13/19 History Nebulized] Cyanocobalamin (Vitamin B-12) 1,000 mcg PO DAILY 08/13/19 08/13/19 History [Vitamin B-12] Gabapentin [Neurontin] 300 mg PO DAILY 08/13/19 08/13/19 History amLODIPine [Norvasc] 2.5 mg PO DAILY 08/13/19 08/13/19 History Allergies Allergy/AdvReac Type Severity Reaction Status Date / Time Sulfa (Sulfonamide Allergy Unknown Verified 08/13/19 10:39 Antibiotics) Physical Exam Vitals: Vital Signs Temp Pulse Pulse Resp BP BP Pulse Ox 08/14/19 08:00 98.1 F 61 18 135/71 95 08/14/19 03:25 98.3 F 61 18 118/72 91 L 08/13/19 22:47 99.1 F 63 17 132/71 93 L 08/13/19 19:52 98.3 F 62 18 123/64 92 L 08/13/19 16:00 62 18 122/68 94 L 08/13/19 15:12 97.4 F L 97 18 107/65 97 08/13/19 11:30 62 119/74 99 08/13/19 11:00 70 123/73 99 08/13/19 10:00 75 18 117/66 Intake and Output 08/13/19 08/14/19 08/14/19 22:59 06:59 14:59 Intake Total 236 552.201 8.86 Balance 236 552.201 8.86 Intake: Intake, IV Titration 552.201 8.86 Amount Amiodarone 300 mg In 350 Dextrose 5% in Water 250 ml @ 0.5 MG/MIN 25 mls/hr IV .Q10H [facility] Rx#: [id number] Heparin Sod,Pork in 0.45% 202.201 8.86 NaCl 25,000 unit In 0.45 % NaCl 1 250ml.bag @ 12 UNITS/KG/HR 9.493 mls/hr IV .Q24H [facility]LEX[facility] Rx#: [id number] Oral 236 Other: Voiding Method Toilet Toilet # Voids 1 1 PHYSICAL EXAMINATION: GENERAL: 88 stroke female in no acute distress at the time of my examination HEENT: Head is atraumatic, normocephalic. Pupils equal, round. Sclera anicteric. Conjunctiva are clear. Mucous membranes of the mouth are moist. Neck is supple. There is no elevated jugular venous pressure. No carotid bruit is heard. HEART EXAMINATION: S1 and S2 1 systolic murmur is heard CHEST EXAMINATION: Lungs are clear to auscultation and precussion. No chest wall tenderness is noted on palpation or with deep breathing. ABDOMEN: Soft, nontender. Bowel sounds are heard. No organomegaly noted. EXTREMITIES: 2+ peripheral pulses with no evidence of peripheral edema and no calf tenderness noted. NEUROLOGIC patient is awake, alert and oriented 3 . . Results 08/13/19 09:00 08/13/19 09:00 Coagulation 08/13/19 08/13/19 08/14/19 Range/Units 09:00 17:23 06:23 PT 11.5 (9.0-12.0) sec APTT 26.9 75.3 H 90.2 H (22.0-30.0) sec Current Medications Generic Name Dose Route Start Last Admin Trade Name Freq PRN Reason Stop Dose Admin Acetaminophen 650 mg 08/13/19 11:29 Tylenol Tab PO Q6HR PRN Mild Pain or Fever > 100.5 Albuterol Sulfate 2.5 mg 08/13/19 12:37 Ventolin Nebulized INHALATION RT-Q4H PRN Shortness Of Breath Albuterol/Ipratropium 3 ml 08/13/19 16:00 Duoneb 0.5 Mg-3 Mg/3 Ml Soln INHALATION RT-QID [facility] Aspirin 81 mg 08/13/19 21:00 08/13/19 20:00 Aspirin PO 81 mg HS [facility]LEX[facility] Administration Atenolol 50 mg 08/13/19 21:00 08/14/19 09:32 Tenormin PO 50 mg BID ALEXIA Administration Budesonide/Formoterol Fumarate 2 puff 08/13/19 20:00 08/14/19 08:40 Symbicort 160-4.5 Mcg Inhaler INHALATION 2 puff RT-BID ALEX[facility] Administration Diltiazem HCl 30 mg 08/13/19 16:00 08/14/19 09:32 Cardizem Oral PO 30 mg TID [facility]LEX[facility] Administration Gabapentin 300 mg 08/14/19 09:00 08/14/19 09:32 Neurontin PO 300 mg DAILY ALEX[facility] Administration Heparin Sodium (Porcine) 0 unit 08/13/19 09:14 Heparin IV PER PROTOCOL PRN Low PTT Protocol Heparin Sodium/Sodium Chloride 250 mls @ 9.493 mls/hr 08/13/19 09:15 08/14/19 07:44 25,000 unit/ Sodium Chloride IV 10 units/kg/hr .Q24H [facility] 7.911 mls/hr Titration Protocol 12 UNITS/KG/HR Sodium Chloride 1,000 mls @ 75 mls/hr 08/13/19 12:45 08/14/19 04:24 Saline 0.9% IV Not Given .[id number] [facility] Insulin Aspart 0 unit 08/14/19 07:30 08/14/19 06:47 Novolog SQ 1 unit ACHS ALEXIA Administration Protocol Levothyroxine Sodium 100 mcg 08/14/19 06:30 08/14/19 06:46 Synthroid PO 100 mcg DAILY@0630 [facility] Administration Montelukast Sodium 10 mg 08/13/19 21:00 08/13/19 20:00 Singulair PO 10 mg HS [facility]LEXIA Administration Multivitamins 1 each 08/14/19 09:00 08/14/19 09:32 Theragran PO 1 each DAILY [facility] Administration Naloxone HCl 0.2 mg 08/13/19 11:29 Narcan IV Q2M PRN Opioid Reversal Ondansetron HCl 4 mg 08/13/19 11:29 08/13/19 20:00 Zofran IVP 4 mg Q8HR PRN Administration Nausea And Vomiting Intake and Output 08/13/19 08/14/19 08/14/19 22:59 06:59 14:59 Intake Total 236 552.201 8.86 Balance 236 552.201 8.86 Intake: Intake, IV Titration 552.201 8.86 Amount Amiodarone 300 mg In 350 Dextrose 5% in Water 250 ml @ 0.5 MG/MIN 25 mls/hr IV .Q10H [facility] Rx#: [id number] Heparin Sod,Pork in 0.45% 202.201 8.86 NaCl 25,000 unit In 0.45 % NaCl 1 250ml.bag @ 12 UNITS/KG/HR 9.493 mls/hr IV .Q24H [facility] Rx#: [id number] Oral 236 Other: Voiding Method Toilet Toilet # Voids 1 1 08/13/19 09:00 08/13/19 09:00 EKG Interpretations (text) She'll EKG showed atrial fibrillation with rapid ventricular response, subsequent EKG shows a normal sinus rhythm with no acute changes. Assessment and Plan Plan: Assessment and plan #1 atrial fibrillation with rapid ventricular response, appears to be of new onset for the patient. She did wear a Holter monitor in November 2018 which showed some PACs and PVCs with short runs of PAT with no evidence of A. fib at that time. She is currently in a normal sinus rhythm #2 chest pain, initial troponin negative. EKG when the patient is in normal sinus rhythm does not show any acute changes. Chest pain may be secondary to atrial fibrillation with rapid ventricular response. #3 asthma #4 hypertension #5 type 2 diabetes, currently diet controlled #6 hypothyroidism #7 hilar and mediastinal adenopathy on CAT scan, PET scan recommended, no evidence of pulmonary embolism Plan We will obtain an echocardiogram with Doppler study as well as a TSH level. We will also check a fasting lipid profile, the patient is a diabetic we would recommend a small dose of statin. Continue baby aspirin, Tenormin 50 mg one tablet by mouth twice a day, Cardizem 30 mg by mouth 3 times a day, we will also look into coverage for Eliquis, start the patient on Eliquis 5 mg one tablet by mouth twice a day for stroke prevention. Obtain 2 subsequent troponins. Further recommendations to follow. DNP note has been reviewed, I agree with a documented findings and plan of care. Patient was seen and examined.
[2019-08-14 11:46] LABS: Glucose,Whole Blood 113 mg/dL (75-99)
[2019-08-14] MEDS: APIXABAN 5 MG TAB PO SCH ×2 (12:24→20:18)
--- NOTE | 2019-08-14 13:52 | P.PN ---
Subjective Progress Note Date: 08/14/19 88 years old female patient of Dr. Ramírez with past medical history of asthma, diabetes, hypertension, hypothyroidism comes in with a new onset atrial fibrillation and chest pain. Patient was noted to be in atrial fibrillation heart rate of 120 running up to 170. Initiated on amiodarone drip since patient had no improvement in her heart rate on diltiazem. Patient converted to sinus rhythm on amiodarone, with improvement in heart rate and the chest pain. Vitals otherwise patient is afebrile, respiratory rate is 18 blood pressure is 101/80 saturating 99% on room air on evaluation blood work patient has a WBC of 3.1 hemoglobin 10.9 close to patient's baseline of 11.9, platelets 125 d-dimer 0.97, BNP suggestive BUN 32 chloride 1.13 which is patient's baseline GFR 50, glucose 193, troponin 1 is negative CTA was done that was negative for pulmonary embolism patient did have some mediastinal and hilar lymphadenopathy which needs follow-up with a PET scan 08/14: The patient denies any new complaints today. She states she is feeling better today. She is currently on amiodarone drip and heparin drip. Cardiology has evaluated the patient and echocardiogram and TSH are pending. Fasting lipid panel has been ordered with recommendations for statin. Continue baby aspirin, Tenormin, Cardizem. Eliquis coverage will be checked. Repeat troponins have been ordered. Anticipate probable discharge tomorrow. Review of Systems Constitutional: Denies chills, Denies fever, Denies lethargy, Denies malaise, Denies poor appetite, Denies weakness, Denies weight loss Eyes: denies decreased vision, denies diplopia, denies discharge, denies pain Ears: deny: decreased hearing Ears, nose, mouth and throat: Denies dental pain, Denies headache, Denies nasal discharge, Denies nose pain Cardiovascular: Denies chest pain, endorses decreased exercise tolerance, Denies edema, Denies high blood pressure, Denies irregular heart beat, Denies pa lpitations, Denies paroxysmal nocturnal dyspnea, Denies rapid heart beat, Denies shortness of breath Respiratory: Denies congestion, Denies cough, Denies cough with sputum, Denies dyspnea, Denies home oxygen, Denies wheezing Gastrointestinal: Denies abdominal pain, Denies change in bowel habits, Denies coffee ground emesis, Denies early satiety, Denies excessive gas, Denies heartburn, Denies hematemesis, Denies hematochezia, Denies loss of appetite, denies nausea and vomiting Genitourinary: Denies dysuria, Denies flank pain, Denies kidney stones, Denies menorrhagia, Denies urgency, Denies urinary frequency Musculoskeletal: Denies gait dysfunction, Denies limitation of motion, Denies morning stiffness, Denies muscle cramps Integumentary: Denies rash, Denies wounds, Denies brittle nails, Denies change in hair/nails, Denies darkening of skin Neurological: Denies balance difficulties, Denies change in speech, Denies double vision, Denies gait dysfunction, Denies loss of vision, Denies motor disturbance, Denies numbness, Denies paralysis, Denies paresthesias, Denies seizures Psychiatric: Denies anxiety, Denies depression Endocrine: Denies excessive sweating, Denies excessive thirst, Denies high blood sugars, Denies palpitations Hematologic/Lymphatic: Denies easy bruising, Denies lymphadenopathy Objective - Vital Signs Vital signs: Vital Signs Temp 98.3 F 08/14/19 03:25 Pulse 61 08/14/19 03:25 Resp 18 08/14/19 03:25 BP 118/72 08/14/19 03:25 Pulse Ox 91 L 08/14/19 03:25 Intake & Output 08/13/19 08/14/19 08/14/19 18:59 06:59 18:59 Intake Total 236 552.201 8.86 Balance 236 552.201 8.86 Weight 79.107 kg Intake: Intake, IV Titration 552.201 8.86 Amount Amiodarone 300 mg In 350 Dextrose 5% in Water 250 ml @ 0.5 MG/MIN 25 mls/hr IV .Q10H [facility] Rx#: [id number] Heparin Sod,Pork in 0.45% 202.201 8.86 NaCl 25,000 unit In 0.45 % NaCl 1 250ml.bag @ 12 UNITS/KG/HR 9.493 mls/hr IV .Q24H [facility] Rx#: [id number] Oral 236 Other: Voiding Method Toilet # Voids 1 - Exam - Constitutional General appearance: cooperative, no acute distress, obese - EENT Eyes: anicteric sclerae, PERRLA, normal appearance ENT: hearing grossly normal - Neck Neck: no lymphadenopathy, normal ROM, no other, no rigidity, no stridor, no thyromegaly - Respiratory Respiratory: bilateral: CTA, negative: diminished, dullness, rales, rhonchi - Cardiovascular Rhythm: regular Heart sounds: normal: S1, S2 Abnormal Heart Sounds: no systolic murmur, no diastolic murmur, no rub, no S3 Gallop, no S4 Gallop, no click, no other - Gastrointestinal General gastrointestinal: normal bowel sounds, soft - Integumentary Integumentary: no rash - Neurologic Neurologic: CNII-XII intact - Musculoskeletal Musculoskeletal: strength equal bilaterally - Psychiatric Psychiatric: A&O x's 3, appropriate affect - Labs CBC & Chem 7: 08/13/19 09:00 08/13/19 09:00 Labs: Abnormal Lab Results - Last 24 Hours (Table) 08/13/19 08/13/19 08/13/19 Range/Units 09:00 09:00 09:00 WBC 3.1 L (3.8-10.6) k/uL RBC 3.59 L (3.80-5.40) m/uL Hgb 10.9 L (11.4-16.0) gm/dL Hct 31.4 L (34.0-46.0) % Plt Count 125 L (150-450) k/uL Lymphocytes # 0.2 L (1.0-4.8) k/uL APTT (22.0-30.0) sec D-Dimer 0.97 H (<0.60) mg/L FEU Chloride 108 H (98-107) mmol/L Carbon Dioxide 20 L (22-30) mmol/L BUN 32 H (7-17) mg/dL Creatinine 1.13 H (0.52-1.04) mg/dL Glucose 193 H (74-99) mg/dL POC Glucose (mg/dL) (75-99) mg/dL Total Protein 6.0 L (6.3-8.2) g/dL Albumin 3.4 L (3.5-5.0) g/dL 08/13/19 08/14/19 08/14/19 Range/Units 17:23 06:23 06:36 WBC (3.8-10.6) k/uL RBC (3.80-5.40) m/uL Hgb (11.4-16.0) gm/dL Hct (34.0-46.0) % Plt Count (150-450) k/uL Lymphocytes # (1.0-4.8) k/uL APTT 75.3 H 90.2 H (22.0-30.0) sec D-Dimer (<0.60) mg/L FEU Chloride (98-107) mmol/L Carbon Dioxide (22-30) mmol/L BUN (7-17) mg/dL Creatinine (0.52-1.04) mg/dL Glucose (74-99) mg/dL POC Glucose (mg/dL) 142 H (75-99) mg/dL Total Protein (6.3-8.2) g/dL Albumin (3.5-5.0) g/dL Assessment and Plan Plan: #1 acute anterior chest pain troponin 3, EKG with A. fib with RVR. Likely secondary to atrial fibrillation. Cardiology consulted to rule out ACS. Continue heparin drip continue aspirin continue atenolol. Lipid panel ordered #2 A. fib with RVR, new onset, paroxysmal atrial fibrillation. Continue Tenormin 50 mg twice daily, Cardizem 30 mg 3 times a day. Eliquis coverage to be checked. Patient is currently on heparin drip #3 type 2 diabetes currently diet controlled #4 asthma mild intermittent, stable continue DuoNeb as needed for shortness of breath #5 hypertension hold Norvasc continue atenolol. Cardizem 30 mg 3 times a day #6 hypothyroidism continue Synthyroid 100 mg by mouth daily. Check TSH #7 CODE STATUS CODE STATUS full code #8 DVT prophylaxis on heparin 9. Hilar and mediastinal adenopathy and CAT scan, PET scan recommended. No PE. Patient will need follow-up as an outpatient. Discharge plan: Home on Friday possibly with homecare Impression and plan of care have been directed as dictated by the signing p halie. Mariana Moore nurse practitioner acting as scribe for signing physician.
--- NOTE | 2019-08-14 14:01 | ECHOF ---
Referral Reason:LVF MEASUREMENTS -------- HEIGHT: 170.2 cm WEIGHT: 79.8 kg BP: 127/86 RVIDd: 3.0 cm (< 3.3) IVSd: 1.2 cm (0.6 - 1.1) LVIDd: 4.2 cm (3.9 - 5.3) LVPWd: 1.3 cm (0.6 - 1.1) IVSs: 1.4 cm LVIDs: 2.1 cm LVPWs: 1.4 cm LA Diam: 2.7 cm (2.7 - 3.8) LAESV Index (A-L): 27.72 ml/m Ao Diam: 3.2 cm (2.0 - 3.7) AV Cusp: 1.9 cm (1.5 - 2.6) MV EXCURSION: 12.360 mm (> 18.000) MV EF SLOPE: 100 mm/s (70 - 150) EPSS: 0.9 cm MV E Noé: 1.22 m/s MV DecT: 245 ms MV A Noé: 1.12 m/s MV E/A Ratio: 1.09 RAP: 5.00 mmHg RVSP: 29.92 mmHg TAPSE: 19.32 mm FINDINGS -------- Sinus rhythm. This was a technically good study. The left ventricular size is normal. There is mild concentric left ventricular hypertrophy. Overa ll left ventricular systolic function is normal with, an EF between 60 - 65 %. The right ventricle is normal in size. Normal LA size by volume 22+/-6 ml/m2. The right atrium is normal in size. Interatrial and interventricular septum intact. There is mild aortic valve sclerosis. Trace amount of aortic regurgitation. The mitral valve leaflets are mildly thickened. Mild mitral annular calcification present. There is trace to mild mitral regurgitation. Mild tricuspid regurgitation present. Right ventricular systolic pressure is normal at < 35 mmHg. Trace/mild (physiologic) pulmonic regurgitation. The aortic root size is normal. Normal inferior vena cava with normal inspiratory collapse consistent with estimated right atrial pre ssure of 5 mmHg. The inferior vena cava is mildly dilated. There is no pericardial effusion. CONCLUSIONS -------- 1. Sinus rhythm. 2. This was a technically good study. 3. The left ventricular size is normal. 4. There is mild concentric left ventricular hypertrophy. 5. Overall left ventricular systolic function is normal with, an EF between 60 - 65 %. 6. The right ventricle is normal in size. 7. Normal LA size by volume 22+/-6 ml/m2. 8. The right atrium is normal in size. 9. Interatrial and interventricular septum intact. 10. There is mild aortic valve sclerosis. 11. Trace amount of aortic regurgitation. 12. The mitral valve leaflets are mildly thickened. 13. Mild mitral annular calcification present. 14. There is trace to mild mitral regurgitation. 15. Mild tricuspid regurgitation present. 16. Right ventricular systolic pressure is normal at < 35 mmHg. 17. Trace/mild (physiologic) pulmonic regurgitation. 18. The aortic root size is normal. 19. Normal inferior vena cava with normal inspiratory collapse consistent with estimated right atrial pressure of 5 mmHg. 20. The inferior vena cava is mildly dilated. 21. There is no pericardial effusion. REBAR BENDER: DIAZ Vaughan
[2019-08-14 16:40] LABS: Glucose,Whole Blood 120 mg/dL (75-99)
[2019-08-14] MEDS: MONTELUKAST 10 MG TAB PO SCH (20:18)
[2019-08-14] MEDS: ASPIRIN 81 MG PO SCH (20:19)
[2019-08-14 20:20] LABS: Glucose,Whole Blood 141 mg/dL (75-99)
[2019-08-14] MEDS ORDERED: ATORVASTATIN 20 MG TAB PO SCH (21:00)
[2019-08-14] MEDS: IPRATROPIUM-ALBUTEROL 3 ML NEB INHALATION SCH ×2 (23:05→23:06)
[2019-08-15 06:10] LABS: Glucose,Whole Blood 145 mg/dL (75-99)
[2019-08-15] MEDS: IPRATROPIUM-ALBUTEROL 3 ML NEB INHALATION SCH ×2 (06:42→06:43)
[2019-08-15] MEDS: SODIUM CHLORIDE 0.9% 1,000 ML IV SCH (06:42)
[2019-08-15] MEDS: LEVOTHYROXINE 100 MCG TAB PO SCH (06:43)
[2019-08-15] MEDS: INSULIN ASPART (NovoLOG) 100 UNIT/ML VIAL SQ SCH ×2 (06:43→12:04)
[2019-08-15] MEDS: DILTIAZEM ORAL 30 MG TAB PO SCH (07:35)
[2019-08-15] MEDS: GABAPENTIN 300 MG CAP PO SCH (07:35)
[2019-08-15] MEDS: MULTIVITAMINS, THERA 1 EACH TAB PO SCH (07:35)
[2019-08-15] MEDS: APIXABAN 5 MG TAB PO SCH (07:36)
[2019-08-15] MEDS: ATENOLOL 50 MG TAB PO SCH (07:36)
[2019-08-15] MEDS: SYMBICORT 160-4.5 MCG INHALER INHALATION SCH (07:41)
[2019-08-15 11:20] VITALS: BP 156/70; PULSE 66; TEMP 99.1
[2019-08-15 11:44] LABS: Glucose,Whole Blood 143 mg/dL (75-99)
--- NOTE | 2019-08-15 11:58 | P.PN ---
Subjective Progress Note Date: 08/15/19 This is a pleasant 88 year old female with history of hypertension, diabetes, hyperlipidemia, asthma, hypothyroidism, presented to the hospital with symptoms of chest discomfort, she was found to be in atrial fibrillation with a rapid ventricular response and initiated on IV Cardizem and subsequently IV amiodarone. She converted to normal sinus rhythm on amiodarone and continues at this time to be in a normal sinus rhythm this morning. Initial EKG showed atrial fibrillation with rapid ventricular response and subsequent EKG shows normal sinus rhythm with no acute changes. Chest x-ray on presentation here does not reveal any acute abnormality. CTA of the chest was performed which was negative for pulmonary embolism, a CTA did show some lymph nodes and some inferior hilar and mediastinal adenopathy bilaterally, the ascending aorta measuring 3.9 cm. I pressure on arrival here 100/80 with a heart rate of 124, 99% on room air. Afebrile. I pressure this morning 135/70 with a heart rate in the 60s, 95% on room air. Temperature 98.1. White blood cell count 3.1, hemoglobin 10.9, platelet count 125. D-dimer 0.97. Sodium 138, potassium 4.0, BUN 32, creatinine 1.1. Troponin 0.012. At the time of my examination this morning, the patient is resting comfortably in bed. No overt complaints at this time. 08/15/2019 Patient seen and examined this morning, currently in normal sinus rhythm, she feels well overall and is anticipating discharge home today. We'll discontinue her Cardizem drip and increase her dose of beta ellie, continue anticoagulation in the form of Eliquis. She may be able to be discharged home from cardiology's perspective to follow-up in the office post discharge. Objective - Vital Signs Vital signs: Vital Signs Temp 99.1 F 08/15/19 11:19 Pulse 66 08/15/19 11:19 Resp 18 08/15/19 11:19 BP 156/70 08/15/19 11:19 Pulse Ox 97 08/15/19 11:19 Intake & Output 08/14/19 08/15/19 08/15/19 18:59 06:59 18:59 Intake Total 628.86 360 Balance 628.86 360 Weight 79.7 kg 77.7 kg Intake: Intake, IV Titration 8.86 Amount Heparin Sod,Pork in 0.45% 8.86 NaCl 25,000 unit In 0.45 % NaCl 1 250ml.bag @ 12 UNITS/KG/HR 9.493 mls/hr IV .[facility] Rx#: [id number] Oral 620 360 Other: Voiding Method Toilet Toilet Toilet # Voids 1 3 - Exam PHYSICAL EXAMINATION: GENERAL: 88 stroke female in no acute distress at the time of my examination HEENT: Head is atraumatic, normocephalic. Pupils equal, round. Sclera anicteric. Conjunctiva are clear. Mucous membranes of the mouth are moist. Neck is supple. There is no elevated jugular venous pressure. No carotid bruit is heard. HEART EXAMINATION: S1 and S2 1 systolic murmur is heard CHEST EXAMINATION: Lungs are clear to auscultation and precussion. No chest wall tenderness is noted on palpation or with deep breathing. ABDOMEN: Soft, nontender. Bowel sounds are heard. No organomegaly noted. EXTREMITIES: 2+ peripheral pulses with no evidence of peripheral edema and no ca lf tenderness noted. NEUROLOGIC patient is awake, alert and oriented 3 . - Labs CBC & Chem 7: 08/13/19 09:00 08/13/19 09:00 Labs: Abnormal Lab Results - Last 24 Hours (Table) 08/14/19 08/14/19 08/14/19 Range/Units 12:02 16:37 18:34 POC Glucose (mg/dL) 120 H (75-99) mg/dL Troponin I 0.057 H* 0.058 H* (0.000-0.034) ng/mL 08/14/19 08/15/19 08/15/19 Range/Units 20:19 06:09 11:41 POC Glucose (mg/dL) 141 H 145 H 143 H (75-99) mg/dL Troponin I (0.000-0.034) ng/mL Assessment and Plan Plan: Assessment and plan #1 atrial fibrillation with rapid ventricular response, appears to be of new onset for the patient. She did wear a Holter monitor in November 2018 which showed some PACs and PVCs with short runs of PAT with no evidence of A. fib at that time. She is currently in a normal sinus rhythm #2 chest pain, initial troponin negative. EKG when the patient is in normal sinus rhythm does not show any acute changes. Chest pain may be secondary to atrial fibrillation with rapid ventricular response. #3 asthma #4 hypertension #5 type 2 diabetes, currently diet controlled #6 hypothyroidism #7 hilar and mediastinal adenopathy on CAT scan, PET scan recommended, no evidence of pulmonary embolism Plan Patient is currently in a normal sinus rhythm. We will discontinue the IV Cardizem drip today and increase her dose of beta ellie. Echocardiogram with Doppler study was performed which revealed a normal left ventricular systolic fu nction. Patient may be discharged home today from our perspective on [facility] for anticoagulation. Follow-up appointment will be made in the office post discharge. DNP note has been reviewed, I agree with a documented findings and plan of care. Patient was seen and examined.
--- NOTE | 2019-08-17 15:57 | P.DS ---
Providers Date of admission: 08/13/19 11:29 Expected date of discharge: 08/15/19 Attending physician: Yobani Silva Consults: 08/13/19 11:32 Consult Physician Routine Consulting Provider: Simeon Iqbal Consult Reason/Comments: new onset afib Do you want consulting provider notified?: Yes Primary care physician: Robert Ramírez [facility] Course: 88 years old female patient of Dr. Ramírez with past medical history of asthma, diabetes, hypertension, hypothyroidism comes in with a new onset atrial fibrillation and chest pain. Patient was noted to be in atrial fibrillation h eart rate of 120 running up to 170. Initiated on amiodarone drip since patient had no improvement in her heart rate on diltiazem. Patient converted to sinus rhythm on amiodarone, with improvement in heart rate and the chest pain. Vitals otherwise patient is afebrile, respiratory rate is 18 blood pressure is 101/80 saturating 99% on room air on evaluation blood work patient has a WBC of 3.1 hemoglobin 10.9 close to patient's baseline of 11.9, platelets 125 d-dimer 0.97, BNP suggestive BUN 32 chloride 1.13 which is patient's baseline GFR 50, glucose 193, troponin 1 is negative CTA was done that was negative for pulmonary embolism patient did have some mediastinal and hilar lymphadenopathy which needs follow-up with a PET scan 08/15: Echocardiogram reveals EF of 60-65% with mild concentric left ventricular hypertrophy, mild aortic valve sclerosis, trace amount of aortic regurgitation, trace to mild mitral regurgitation, mild tricuspid regurgitation. Patient has been seen and followed by cardiology. Heart monitor is in normal sinus rhythm. Cardizem drip discontinued and patient on beta ellie and continue eliquis. Patient is cleared for discharge from cardiology. Patient will be discharged home in stable condition. Discharge diagnoses: #1 acute anterior chest pain secondary to A. fib with RVR. #2 A. fib with RVR, new onset, paroxysmal atrial fibrillation. #3 type 2 diabetes #4 asthma mild intermittent, stable #5 hypertension #6 hypothyroidism #7 Hilar and mediastinal adenopathy on CAT scan, PET scan recommended. No PE. Patient will need follow-up as an outpatient. Discharge plan: Home Impression and plan of care have been directed as dictated by the signing physician. Mariana Moore nurse practitioner acting as scribe for signing physician. Patient Condition at Discharge: Good Plan - Discharge Summary Discharge Rx Participant: No New Discharge Prescriptions: New Diltiazem Oral [Cardizem*] 30 mg PO TID #90 tab Apixaban [Eliquis] 5 mg PO BID #60 tab Atorvastatin [Lipitor] 20 mg PO HS #30 tab Continue Ipratropium/Albuterol Sulfate [Combivent Respimat Inhaler] 1 puff INHALATION RT-QID Montelukast [Singulair] 10 mg PO HS Levothyroxine Sodium [Synthroid] 100 mcg PO DAILY Atenolol [Tenormin] 50 mg PO BID Aspirin 81 mg PO HS Multivitamins, Thera [Multivitamin (formulary)] 1 tab PO DAILY Fluticasone/Salmeterol [Advair 500-50 Diskus] 1 puff INHALATION RT-BID Fish Oil/Dha/Epa [Fish Oil 1,200 mg Fish Oil] 1 cap PO DAILY Gabapentin [Neurontin] 300 mg PO DAILY Albuterol Nebulized [Ventolin Nebulized] 2.5 mg INHALATION RT-Q4H PRN PRN Reason: Shortness Of Breath Cyanocobalamin (Vitamin B-12) [Vitamin B-12] 1,000 mcg PO DAILY Discontinued amLODIPine [Norvasc] 2.5 mg PO DAILY Discharge Medication List Aspirin 81 mg PO HS 02/03/15 [History] Atenolol [Tenormin] 50 mg PO BID 02/03/15 [History] Ipratropium/Albuterol Sulfate [Combivent Respimat Inhaler] 1 puff INHALATION RT- QID 02/03/15 [History] Levothyroxine Sodium [Synthroid] 100 mcg PO DAILY 02/03/15 [History] Montelukast [Singulair] 10 mg PO HS 02/03/15 [History] Multivitamins, Thera [Multivitamin (formulary)] 1 tab PO DAILY 02/03/15 [History] Fish Oil/Dha/Epa [Fish Oil 1,200 mg Fish Oil] 1 cap PO DAILY 10/28/18 [History] Fluticasone/Salmeterol [Advair 500-50 Diskus] 1 puff INHALATION RT-BID 10/28/18 [History] Albuterol Nebulized [Ventolin Nebulized] 2.5 mg INHALATION RT-Q4H PRN 08/13/19 [History] Cyanocobalamin (Vitamin B-12) [Vitamin B-12] 1,000 mcg PO DAILY 08/13/19 [History] Gabapentin [Neurontin] 300 mg PO DAILY 08/13/19 [History] Apixaban [Eliquis] 5 mg PO BID #60 tab 08/15/19 [Rx] Atorvastatin [Lipitor] 20 mg PO HS #30 tab 08/15/19 [Rx] Diltiazem Oral [Cardizem*] 30 mg PO TID #90 tab 08/15/19 [Rx] Follow up Appointment(s)/Referral(s): [facility], [NON-STAFF] - 1-2 Days Robert Ramírez MD [Primary Care Provider] - 1 Week Idris Valentin MD [STAFF PHYSICIAN] - 1 Week Patient Instructions/Handouts: A-fib (Atrial Fibrillation) (DC), Safe Use of Anticoagulants (DC) Discharge Disposition: HOME SELF-CARE
== END 2019-08-15 13:36 | disposition home health service (06) | DRG 310 ==
LOC: EC 08:42 → 3SCARD 11:29
PROVIDERS: ADMIT Internal Medicine Geriatric Medicine; ATTEND Internal Medicine Geriatric Medicine
DX: I48.0 Paroxysmal atrial fibrillation (principal); I49.3 Ventricular premature depolarization; E11.22 Type 2 diabetes mellitus with diabetic chronic kidney disease; N18.3 Chronic kidney disease, stage 3 (moderate); E11.42 Type 2 diabetes mellitus with diabetic polyneuropathy; I11.9 Hypertensive heart disease without heart failure; E03.9 Hypothyroidism, unspecified; D72.819 Decreased white blood cell count, unspecified; E78.5 Hyperlipidemia, unspecified; J45.20 Mild intermittent asthma, uncomplicated; H40.9 Unspecified glaucoma; K57.90 Diverticulosis of intestine, part unspecified, without perforation or abscess without bleeding; R59.0 Localized enlarged lymph nodes; I08.3 Combined rheumatic disorders of mitral, aortic and tricuspid valves; Z79.82 Long term (current) use of aspirin; Z79.890 Hormone replacement therapy; Z79.899 Other long term (current) drug therapy; Z90.710 Acquired absence of both cervix and uterus; Z88.2 Allergy status to sulfonamides; Z90.722 Acquired absence of ovaries, bilateral; Z98.42 Cataract extraction status, left eye; Z98.41 Cataract extraction status, right eye; Z96.1 Presence of intraocular lens; Z80.41 Family history of malignant neoplasm of ovary; Z82.49 Family history of ischemic heart disease and other diseases of the circulatory system; Z82.3 Family history of stroke; Z83.79 Family history of other diseases of the digestive system
CPT/HCPCS: 36415; 71045; 71275; 80053; 83605; 83735; 84443; 84484; 85025; 85379; 85610; 85730; 93005; 93306; 94640; 96365; 96366; 96376; 99291

== ENCOUNTER 2019-10-25 | Emergency (ER) | payer MEDICARE, BC | END 2019-10-25 01:26 | disposition home or self-care (01) | CPT/HCPCS: 81001; 93005; 99284 ==

== ENCOUNTER 2020-09-13 18:28 | Emergency (ER) | payer MEDICARE, BC ==
[2020-09-13 18:37] VITALS: RESP 16; TEMP 98.1
[2020-09-13] MEDS ORDERED: hydrALAZINE HCL 20 MG/ML 1 ML VIAL IVP STA (18:46)
--- NOTE | 2020-09-13 18:48 | ED ---
General Adult HPI - General Chief complaint: Recheck/Abnormal Lab/Rx Stated complaint: hypertension Time Seen by Provider: 09/13/20 18:35 Source: patient, EMS, RN notes reviewed, old records reviewed Mode of arrival: EMS Limitations: no limitations - History of Present Illness Initial comments: This is an 89-year-old female presents emergency department stating that she's been feeling tired lately so she took her blood pressure last night tonight and both times it was high so she called unable to bring her in because of the elevated blood pressure. Patient denies any headache patient denies any blurred vision patient denies any numbness weakness. Patient denies any chest pain palpitations difficulty breathing or shortness of breath per patient denies any recent fever chills or cough per patient denies abdominal pain patient denies nausea vomiting diarrhea per patient denies any swelling to legs or calf tenderness. Patient denies any dysuria but states she does have urinary frequency. - Related Data Home Medications Medication Instructions Recorded Confirmed Aspirin 81 mg PO HS 02/03/15 08/13/19 Ipratropium/Albuterol Sulfate 1 puff INHALATION RT-QID 02/03/15 08/13/19 [Combivent Respimat Inhaler] Levothyroxine Sodium [Synthroid] 100 mcg PO DAILY 02/03/15 08/13/19 Montelukast [Singulair] 10 mg PO HS 02/03/15 08/13/19 Multivitamins, Thera [Multivitamin 1 tab PO DAILY 02/03/15 08/13/19 (formulary)] atenoloL [Tenormin] 50 mg PO BID 02/03/15 08/13/19 Fish Oil/Dha/Epa [Fish Oil 1,200 1 cap PO DAILY 10/28/18 08/13/19 mg Fish Oil] Fluticasone/Salmeterol [Advair 1 puff INHALATION RT-BID 10/28/18 08/13/19 500-50 Diskus] Albuterol Nebulized [Ventolin 2.5 mg INHALATION RT-Q4H PRN 08/13/19 08/13/19 Nebulized] Cyanocobalamin (Vitamin B-12) 1,000 mcg PO DAILY 08/13/19 08/13/19 [Vitamin B-12] Gabapentin [Neurontin] 300 mg PO DAILY 08/13/19 08/13/19 Previous Rx's Medication Instructions Recorded Apixaban [Eliquis] 5 mg PO BID #60 tab 08/15/19 Atorvastatin [Lipitor] 20 mg PO HS #30 tab 08/15/19 Diltiazem Oral [Cardizem*] 30 mg PO TID #90 tab 08/15/19 Allergies Allergy/AdvReac Type Severity Reaction Status Date / Time Sulfa (Sulfonamide Allergy Unknown Verified 10/25/19 00:28 Antibiotics) Review of Systems ROS Statement: Those systems with pertinent positive or pertinent negative responses have been documented in the HPI. ROS Other: All systems not noted in ROS Statement are negative. Past Medical History Past Medical History: Asthma, Diabetes Mellitus, Hypertension, Thyroid Disorder Additional Past Medical History / Comment(s): Seen at [facility] for vomiting, NIDDM type II-diet controlled, neuropathy bilateral feet, CKD stage III, anemia, urinary leakage, bilateral glaucoma, diverticular disease, hypothyroid. History of Any Multi-Drug Resistant Organisms: None Reported Past Surgical History: Hysterectomy Additional Past Surgical History / Comment(s): Hysterectomy then bilateral oophorectomy 10 years later, R benign breast biopsy, bladder sling, bilateral cataract removals/lens implants, colonoscopies. Past Anesthesia/Blood Transfusion Reactions: No Reported Reaction Past Psychological History: No Psychological Hx Reported Past Alcohol Use History: None Reported Past Drug Use History: None Reported - Past Family History Father Family Medical History: Cancer, Coronary Artery Disease (CAD) Additional Family Medical History / Comment(s): Father of CAD. He had prostate cancer. Mother Family Medical History: Cancer Additional Family Medical History / Comment(s): Mother of ovarian cancer. General Exam - General Exam Comments Initial Comments: GENERAL: Patient is well-developed and well-nourished. Patient is nontoxic and well- hydrated and is in no acute distress. ENT: Neck is soft and supple. No significant lymphadenopathy is noted. Oropharynx is clear. Moist mucous membranes. Neck has full range of motion without eliciting any pain. EYES: The sclera were anicteric and conjunctiva were pink and moist. Extraocular movements were intact and pupils were equal round and reactive to light. Eyelids were unremarkable. PULMONARY: Unlabored respirations. Good breath sounds bilaterally. No audible rales rhonc hi or wheezing was noted. CARDIOVASCULAR: There is a regular rate and rhythm without any murmurs gallops or rubs. ABDOMEN: Soft and nontender with normal bowel sounds. SKIN: Skin is clear with no lesions or rashes and otherwise unremarkable. NEUROLOGIC: Patient is alert and oriented x3. Cranial nerves II through XII are grossly intact. Motor and sensory are also intact. Normal speech, volume and content. Symmetrical smile. MUSCULOSKELETAL: Normal extremities with adequate strength and full range of motion. No lower extremity swelling or edema. No calf tenderness. LYMPHATICS: No significant lymphadenopathy is noted PSYCHIATRIC: Normal psychiatric evaluation. Limitations: no limitations Course Vital Signs 09/13/20 09/13/20 09/13/20 18:34 19:00 19:30 Temperature 98.1 F Pulse Rate 64 65 69 Respiratory 16 16 16 Rate Blood Pressure 187/91 137/115 143/67 O2 Sat by Pulse 97 98 98 Oximetry 09/13/20 20:00 Temperature Pulse Rate 72 Respiratory 16 Rate Blood Pressure 152/87 O2 Sat by Pulse 98 Oximetry Medical Decision Making - Medical Decision Making EKG shows normal sinus rhythm at 62 bpm OH interval 262 QRS is 86 QT interval 434 QTC is 440. Patient's EKG shows no ST segment elevation or depression. Patient's chest x-ray shows no acute abnormality. I gave the patient hydralazine and her blood pressure came down to 152/87. - Lab Data Result diagrams: 09/13/20 18:45 09/13/20 18:45 Lab Results 09/13/20 09/13/20 09/13/20 Range/Units 18:45 18:45 18:45 WBC 5.2 (3.8-10.6) k/uL RBC 4.10 (3.80-5.40) m/uL Hgb 11.7 (11.4-16.0) gm/dL Hct 37.4 (34.0-46.0) % MCV 91.2 (80.0-100.0) fL MCH 28.4 (25.0-35.0) pg MCHC 31.2 (31.0-37.0) g/dL RDW 16.2 H (11.5-15.5) % Plt Count 123 L (150-450) k/uL MPV 8.0 Neutrophils % 72 % Lymphocytes % 14 % Monocytes % 8 % Eosinophils % 3 % Basophils % 1 % Neutrophils # 3.7 (1.3-7.7) k/uL Lymphocytes # 0.7 L (1.0-4.8) k/uL Monocytes # 0.4 (0-1.0) k/uL Eosinophils # 0.2 (0-0.7) k/uL Basophils # 0.1 (0-0.2) k/uL Hypochromasia Moderate Poikilocytosis Slight Anisocytosis Slight PT 11.1 (9.0-12.0) sec INR 1.1 (<1.2) APTT 27.9 (22.0-30.0) sec Sodium (137-145) mmol/L Potassium (3.5-5.1) mmol/L Chloride (98-107) mmol/L Carbon Dioxide (22-30) mmol/L Anion Gap mmol/L BUN (7-17) mg/dL Creatinine (0.52-1.04) mg/dL Est GFR (CKD-EPI)AfAm (>60 ml/min/1.73 sqM) Est GFR (CKD-EPI)NonAf (>60 ml/min/1.73 sqM) Glucose (74-99) mg/dL Calcium (8.4-10.2) mg/dL Magnesium (1.6-2.3) mg/dL Total Bilirubin (0.2-1.3) mg/dL AST (14-36) U/L ALT (4-34) U/L Alkaline Phosphatase (38-126) U/L Troponin I (0.000-0.034) ng/mL Total Protein (6.3-8.2) g/dL Albumin (3.5-5.0) g/dL Urine Color Light Yellow Urine Appearance Clear (Clear) Urine pH 6.5 (5.0-8.0) Ur Specific Maple 1.009 (1.001-1.035) Urine Protein Negative (Negative) Urine Glucose (UA) Negative (Negative) Urine Ketones Negative (Negative) Urine Blood Negative (Negative) Urine Nitrite Negative (Negative) Urine Bilirubin Negative (Negative) Urine Urobilinogen <2.0 (<2.0) mg/dL Ur Leukocyte Esterase Small H (Negative) Urine RBC 1 (0-5) /hpf Urine WBC 5 (0-5) /hpf Ur Squamous Epith Cells <1 (0-4) /hpf Urine Mucus Rare H (None) /hpf 09/13/20 09/13/20 Range/Units 18:45 18:45 WBC (3.8-10.6) k/uL RBC (3.80-5.40) m/uL Hgb (11.4-16.0) gm/dL Hct (34.0-46.0) % MCV (80.0-100.0) fL MCH (25.0-35.0) pg MCHC (31.0-37.0) g/dL RDW (11.5-15.5) % Plt Count (150-450) k/uL MPV Neutrophils % % Lymphocytes % % Monocytes % % Eosinophils % % Basophils % % Neutrophils # (1.3-7.7) k/uL Lymphocytes # (1.0-4.8) k/uL Monocytes # (0-1.0) k/uL Eosinophils # (0-0.7) k/uL Basophils # (0-0.2) k/uL Hypochromasia Poikilocytosis Anisocytosis PT (9.0-12.0) sec INR (<1.2) APTT (22.0-30.0) sec Sodium 136 L (137-145) mmol/L Potassium 4.3 (3.5-5.1) mmol/L Chloride 103 (98-107) mmol/L Carbon Dioxide 24 (22-30) mmol/L Anion Gap 9 mmol/L BUN 41 H (7-17) mg/dL Creatinine 1.33 H (0.52-1.04) mg/dL Est GFR (CKD-EPI)AfAm 41 (>60 ml/min/1.73 sqM) Est GFR (CKD-EPI)NonAf 36 (>60 ml/min/1.73 sqM) Glucose 128 H (74-99) mg/dL Calcium 9.6 (8.4-10.2) mg/dL Magnesium 2.1 (1.6-2.3) mg/dL Total Bilirubin 0.4 (0.2-1.3) mg/dL AST 24 (14-36) U/L ALT 17 (4-34) U/L Alkaline Phosphatase 69 (38-126) U/L Troponin I <0.012 (0.000-0.034) ng/mL Total Protein 7.3 (6.3-8.2) g/dL Albumin 4.2 (3.5-5.0) g/dL Urine Color Urine Appearance (Clear) Urine pH (5.0-8.0) Ur Specific Maple (1.001-1.035) Urine Protein (Negative) Urine Glucose (UA) (Negative) Urine Ketones (Negative) Urine Blood (Negative) Urine Nitrite (Negative) Urine Bilirubin (Negative) Urine Urobilinogen (<2.0) mg/dL Ur Leukocyte Esterase (Negative) Urine RBC (0-5) /hpf Urine WBC (0-5) /hpf Ur Squamous Epith Cells (0-4) /hpf Urine Mucus (None) /hpf Disposition Clinical Impression: Hypertensive urgency, Renal insufficiency Disposition: HOME SELF-CARE Condition: Good Instructions (If sedation given, give patient instructions): Hypertension (ED) Additional Instructions: Patient should take an extra half of atenolol if her blood pressure is elevated above 160 systolic or 100 diastolic. Patient should increase her fluid intake. Patient should follow-up to primary medical care doctor for repeat laboratory work. Is patient prescribed a controlled substance at d/c from ED?: No Referrals: Robert Ramírez MD [Primary Care Provider] - 1-2 days Time of Disposition: 20:31
[2020-09-13 18:58] LABS: Anisocytosis Slight; Basophils # (A) 0.1 k/uL (0-0.2); Basophils % (A) 1 %; Eosinophils # (A) 0.2 k/uL (0-0.7); Eosinophils % (A) 3 %; HCT 37.4 % (34.0-46.0); HGB 11.7 gm/dL (11.4-16.0); Hypochromasia Moderate; Lymphocytes # (A) 0.7 k/uL (1.0-4.8); Lymphocytes % (A) 14 %; MCH 28.4 pg (25.0-35.0); MCHC 31.2 g/dL (31.0-37.0); MCV 91.2 fL (80.0-100.0); Monocytes # (A) 0.4 k/uL (0-1.0); Monocytes % (A) 8 %; Neutrophils # (A) 3.7 k/uL (1.3-7.7); Neutrophils % (A) 72 %; Platelet Count 123 k/uL (150-450); Poikilocytosis Slight; RDW 16.2 % (11.5-15.5); WBC 5.2 k/uL (3.8-10.6)
[2020-09-13 19:01] LABS: Appearance,Urine Clear (Clear); Bilirubin,Urine Negative (Negative); Blood,Urine Negative (Negative); Color,Urine Light Yellow; Glucose,Urine (UA) Negative (Negative); Ketones,Urine Negative (Negative); Leukocyte Esterase,Urine Small (Negative); Mucus,Urine Rare /hpf; Nitrite,Urine Negative (Negative); PH, Urine 6.5 (5.0-8.0); Protein,Urine Negative (Negative); RBC,Urine 1 /hpf (0-5); Specific Gravity,Urine 1.009 (1.001-1.035); Squamous Epithelial Cell,Urine <1 /hpf (0-4); Urobilinogen,Urine <2.0 mg/dL (<2.0); WBC,Urine 5 /hpf (0-5)
[2020-09-13 19:06] LABS: INR 1.1 (<1.2); Partial Thromboplastin Time 27.9 sec (22.0-30.0); Prothrombin Time 11.1 sec (9.0-12.0)
[2020-09-13 19:13] LABS: Albumin 4.2 g/dL (3.5-5.0); Calcium 9.6 mg/dL (8.4-10.2); Magnesium 2.1 mg/dL (1.6-2.3); Total Bilirubin 0.4 mg/dL (0.2-1.3); Total Protein 7.3 g/dL (6.3-8.2)
[2020-09-13 19:29] LABS: Potassium 4.3 mmol/L (3.5-5.1)
--- NOTE | 2020-09-13 20:21 | XR ---
EXAMINATION TYPE: XR chest 2V DATE OF EXAM: 09/13/2020 COMPARISON: 08/13/2019 HISTORY: Chest pain TECHNIQUE: FINDINGS: There is no heart failure nor confluent pneumonic infiltrate. Costophrenic angles are clear . There are chest leads. There are no hilar masses. There is slight thoracic dextroscoliosis. IMPRESSION: No active cardiopulmonary disease. No change.
[2020-09-13 20:49] VITALS: BP 145/81; PULSE 65
== END 2020-09-13 20:50 | disposition home or self-care (01) ==
LOC: EC 18:28
DX: I16.0 Hypertensive urgency (principal); N28.9 Disorder of kidney and ureter, unspecified; J45.909 Unspecified asthma, uncomplicated; E03.9 Hypothyroidism, unspecified; Z79.899 Other long term (current) drug therapy; Z79.82 Long term (current) use of aspirin; Z79.890 Hormone replacement therapy; Z79.51 Long term (current) use of inhaled steroids; Z88.2 Allergy status to sulfonamides
CPT/HCPCS: 36415; 93005; 80053; 83735; 84484; 85025; 85610; 85730; 81001; 71046; 99284; 96374; J0360

== ENCOUNTER → 2020-09-25 | Outpatient (CLI) | payer MEDICARE, BC ==
--- NOTE | 2020-09-26 14:01 | MM ---
Reason for exam: additional evaluation requested from prior study. Last mammogram was performed 2 years and 11 months ago. History: Patient is postmenopausal. Benign excisional biopsy of the right breast, 2004. Took estrogen for 18 years beginning at age 55. Physical Findings: Nurse did not find any significant physical abnormalities on exam. MG 3D Diag Mammo W/Cad JAKI Bilateral CC and MLO view(s) were taken. Prior study comparison: October 29, 2017, bilateral MG 3d screening mammo w/cad. July 15, 2016, bilateral MG 3d screening mammo w/cad. There are scattered fibroglandular densities. Global asymmetry 12 o'clock left breast unchanged. No significant new findings when compared with previous films. These results were verbally communicated with the patient and result sheet given to the patient on 09/25/20. ASSESSMENT: Benign, BI-RAD 2 RECOMMENDATION: Routine screening mammogram of both breasts in 1 year.
== END | disposition home or self-care (01) ==
LOC: RADMAMWWP 12:37
PROVIDERS: ATTEND Family Medicine
DX: N64.4 Mastodynia (principal)
CPT/HCPCS: 77066; G0279; 77062

== ENCOUNTER 2020-11-05 14:01 | Observation (INO) | payer MEDICARE, BC ==
--- NOTE | 2020-11-05 14:36 | XR ---
EXAMINATION TYPE: XR chest 2V DATE OF EXAM: 11/05/2020 COMPARISON: 09/13/2020. HISTORY: Chest pain. TECHNIQUE: Frontal and lateral views of the chest are obtained. FINDINGS: There is no focal air space opacity, pleural effusion, or pneumothorax seen. The cardiac silhouette size is within normal limits. The osseous structures are intact. IMPRESSION: No acute cardiopulmonary process.
[2020-11-05 14:39] LABS: Basophils % (A) 1 %; Eosinophils # (A) 0.2 k/uL (0-0.7); Eosinophils % (A) 3 %; HCT 31.9 % (34.0-46.0); HGB 11.5 gm/dL (11.4-16.0); Lymphocytes # (A) 0.9 k/uL (1.0-4.8); Lymphocytes % (A) 17 %; MCH 31.4 pg (25.0-35.0); MCV 87.1 fL (80.0-100.0); Mean Platelet Volume 7.9; Monocytes # (A) 0.4 k/uL (0-1.0); Monocytes % (A) 8 %; Neutrophils # (A) 3.8 k/uL (1.3-7.7); Neutrophils % (A) 69 %; Platelet Count 136 k/uL (150-450); RBC 3.66 m/uL (3.80-5.40); RDW 14.2 % (11.5-15.5); WBC 5.5 k/uL (3.8-10.6)
[2020-11-05 14:43] LABS: INR 1.1 (<1.2)
[2020-11-05 14:44] LABS: Albumin 4.2 g/dL (3.5-5.0); Calcium 9.5 mg/dL (8.4-10.2); Partial Thromboplastin Time 27.9 sec (22.0-30.0); Potassium 4.8 mmol/L (3.5-5.1); Prothrombin Time 11.3 sec (9.0-12.0); Total Bilirubin 0.6 mg/dL (0.2-1.3); Total Protein 7.1 g/dL (6.3-8.2)
[2020-11-05] MEDS ORDERED: LORazepam 2 MG/ML INJ IV STA (16:39)
--- NOTE | 2020-11-05 16:48 | ED ---
Chest Pain HPI - General Chief Complaint: Chest Pain Stated Complaint: Chest pain Source: patient Mode of arrival: EMS Limitations: no limitations - History of Present Illness Initial Comments: 89-year-old female past medical history of Catrachita donato on elquist, hypertension who presents emergency Department with reported chest pain. States that she was at home watching TV when she had sudden onset of left sided chest pain which radiated into her left arm. She checked her blood pressure and noted it to be over 200 systolic. She did take half of her atenolol and reattempted to check her blood pressure however continued remained high and therefore she called EMS. She was given nitro and aspirin en route to the hospital. Reports that she did have improvement in her chest pain after nitroglycerin administration. Pain is currently graded 2 out of 10. She denies any associated fevers, chills or cough. No ripping or tearing sensation to her back. Denies any lower extremity swelling. No history of DVT or PE. Patient denies any missed doses of her anticoagulation. No other alleviating, precipitating or modifying factors - Related Data Home Medications Medication Instructions Recorded Confirmed Levothyroxine Sodium [Synthroid] 100 mcg PO DAILY 02/03/15 11/05/20 Montelukast [Singulair] 10 mg PO HS 02/03/15 11/05/20 Multivitamins, Thera [Multivitamin 1 tab PO DAILY 02/03/15 11/05/20 (formulary)] Fish Oil/Dha/Epa [Fish Oil 1,200 1 cap PO DAILY 10/28/18 11/05/20 mg Fish Oil] Fluticasone/Salmeterol [Advair 1 puff INHALATION RT-BID 10/28/18 11/05/20 500-50 Diskus] Cyanocobalamin (Vitamin B-12) 1,000 mcg PO DAILY 08/13/19 11/05/20 [Vitamin B-12] Gabapentin [Neurontin] 300 mg PO TID 08/13/19 11/05/20 Latanoprost/Pf [Latanoprost 0.005% 1 drop BOTH EYES HS 11/05/20 11/05/20 Eye Drop] Previous Rx's Medication Instructions Recorded Apixaban [Eliquis] 5 mg PO BID #60 tab 08/15/19 Losartan [Cozaar] 50 mg PO DAILY 30 Days #30 tab 11/06/20 atenoloL [Tenormin] 50 mg PO DAILY tab 11/06/20 Allergies Allergy/AdvReac Type Severity Reaction Status Date / Time Sulfa (Sulfonamide Allergy Unknown Verified 11/05/20 17:02 Antibiotics) Review of Systems ROS Statement: Those systems with pertinent positive or pertinent negative responses have been documented in the HPI. ROS Other: All systems not noted in ROS Statement are negative. EKG Findings - EKG Comments: EKG Findings:: EKG demonstrates sinus bradycardia with a ventricular rate of 46. AK interval 164. QRS 82. QTC of 409. No acute ST segment elevations or depressions Past Medical History Past Medical History: Atrial Fibrillation, Asthma, Diabetes Mellitus, Hypertension, Thyroid Disorder Additional Past Medical History / Comment(s): Seen at [facility] for vomiting, NIDDM type II-diet controlled, neuropathy bilateral feet, CKD stage III, anemia, urinary leakage, bilateral glaucoma, diverticular disease, hypothyroid. History of Any Multi-Drug Resistant Organisms: None Reported Past Surgical History: Hysterectomy Additional Past Surgical History / Comment(s): Hysterectomy then bilateral oophorectomy 10 years later, R benign breast biopsy, bladder sling, bilateral cataract removals/lens implants, colonoscopies. Past Anesthesia/Blood Transfusion Reactions: No Reported Reaction Past Psychological History: No Psychological Hx Reported Smoking Status: Never smoker Past Alcohol Use History: None Reported Past Drug Use History: None Reported - Past Family History Father Family Medical History: Cancer, Coronary Artery Disease (CAD) Additional Family Medical History / Comment(s): Father of CAD. He had prostate cancer. Mother Family Medical History: Cancer Additional Family Medical History / Comment(s): Mother of ovarian cancer. General Exam Limitations: no limitations General appearance: alert, in no apparent distress Head exam: Present: atraumatic, normocephalic, normal inspection Eye exam: Present: normal appearance, PERRL, EOMI. Absent: scleral icterus, conjunctival injection, periorbital swelling ENT exam: Present: normal exam, mucous membranes moist Neck exam: Present: normal inspection. Absent: tenderness, meningismus, lymphadenopathy Respiratory exam: Present: normal lung sounds bilaterally. Absent: respiratory distress, wheezes, rales, rhonchi, stridor Cardiovascular Exam: Present: regular rate, normal rhythm, normal heart sounds. Absent: systolic murmur, diastolic murmur, rubs, gallop, clicks GI/Abdominal exam: Present: soft, normal bowel sounds. Absent: distended, tenderness, guarding, rebound, rigid Extremities exam: Present: normal inspection, full ROM, normal capillary refill. Absent: tenderness, pedal edema, joint swelling, calf tenderness Back exam: Present: normal inspection Neurological exam: Present: alert, oriented X3, CN II-XII intact Psychiatric exam: Present: normal affect, normal mood Skin exam: Present: warm, dry, intact, normal color. Absent: rash Course Vital Signs 11/05/20 11/05/20 11/05/20 14:08 15:11 16:44 Temperature 98.1 F Pulse Rate 56 L 56 L 57 L Respiratory 16 16 16 Rate Blood Pressure 172/98 146/83 176/103 O2 Sat by Pulse 94 L 95 98 Oximetry 11/05/20 11/05/20 11/06/20 17:41 18:37 01:00 Temperature 97.9 F 97.8 F Pulse Rate 61 57 L 58 L Respiratory 16 16 18 Rate Blood Pressure 179/101 142/84 148/88 O2 Sat by Pulse 97 95 96 Oximetry 11/06/20 11/06/20 11/06/20 06:15 08:53 09:04 Temperature 97.6 F Pulse Rate 55 L 52 L 51 L Respiratory 18 Rate Blood Pressure 160/79 O2 Sat by Pulse 96 Oximetry 11/06/20 11/06/20 11/06/20 11:00 12:20 12:33 Temperature 98.0 F Pulse Rate 65 56 L 58 L Respiratory 18 Rate Blood Pressure 137/67 O2 Sat by Pulse 98 Oximetry 11/06/20 11/06/20 11/06/20 15:00 16:56 17:07 Temperature 98.0 F Pulse Rate 57 L 56 L 57 L Respiratory 18 Rate Blood Pressure 140/70 O2 Sat by Pulse 98 Oximetry 11/06/20 18:00 Temperature 98.0 F Pulse Rate 62 Respiratory 18 Rate Blood Pressure 138/66 O2 Sat by Pulse 99 Oximetry Chest Pain MDM - MDM Upon arrival patient is placed into trauma 1. No history and physical exam was performed. Patient has been previously administered nitro and aspirin. Laboratory studies are conduct and the patient is sent for chest x-ray. Laboratory studies are reviewed and troponin is negative. Covid is negative. Chest x-ray demonstrates no acute cardiopulmonary process. Results are discussed with the patient. Did recommend admission in order to trend her troponins and have cardiology see her. Patient agreed to this. Spoke with Dr. Rainey who agreed. Patient is currently awaiting a bed on the floor Disposition Clinical Impression: Chest pain Disposition: ADMITTED IP TO THIS HOSP Condition: Stable Is patient prescribed a controlled substance at d/c from ED?: No Decision to Admit Reason: Admit from EC Decision Date: 11/05/20 Decision Time: 16:48
[2020-11-05] MEDS ORDERED: NALOXONE 0.4 MG/ML 1 ML VIAL IV PRN (16:49)
[2020-11-05] MEDS ORDERED: MONTELUKAST 10 MG TAB PO SCH (21:00)
[2020-11-05] MEDS ORDERED: LATANOPROST 0.005% OPHTH DROPS 2.5 ML BTL BOTH EYES SCH (21:00)
[2020-11-05] MEDS: APIXABAN 5 MG TAB PO SCH (22:21)
[2020-11-05] MEDS: GABAPENTIN 300 MG CAP PO SCH (22:21)
[2020-11-05] MEDS: atenoloL 50 MG TAB PO SCH (22:21)
[2020-11-06 05:57] LABS: Basophils % (A) 1 %; Eosinophils # (A) 0.2 k/uL (0-0.7); Eosinophils % (A) 4 %; HCT 32.9 % (34.0-46.0); HGB 11.3 gm/dL (11.4-16.0); Lymphocytes # (A) 0.9 k/uL (1.0-4.8); Lymphocytes % (A) 18 %; MCH 30.2 pg (25.0-35.0); MCHC 34.3 g/dL (31.0-37.0); MCV 88.1 fL (80.0-100.0); Mean Platelet Volume 7.5; Monocytes # (A) 0.4 k/uL (0-1.0); Monocytes % (A) 7 %; Neutrophils # (A) 3.3 k/uL (1.3-7.7); Neutrophils % (A) 68 %; Platelet Count 115 k/uL (150-450); RBC 3.74 m/uL (3.80-5.40); RDW 14.3 % (11.5-15.5); WBC 4.9 k/uL (3.8-10.6)
[2020-11-06] MEDS ORDERED: LEVOTHYROXINE 100 MCG TAB PO SCH (06:30)
[2020-11-06 06:37] VITALS: RESP 18
[2020-11-06 06:41] LABS: Potassium 4.3 mmol/L (3.5-5.1)
[2020-11-06 06:42] LABS: Calcium 9.5 mg/dL (8.4-10.2)
[2020-11-06] MEDS ORDERED: SYMBICORT 160-4.5 MCG INHALER INHALATION SCH (08:00)
[2020-11-06] MEDS: IPRATROPIUM-ALBUTEROL 3 ML NEB INHALATION SCH ×3 (08:52→16:56)
[2020-11-06] MEDS ORDERED: MULTIVITAMINS, THERA 1 EACH TAB PO SCH (09:00)
[2020-11-06] MEDS ORDERED: LOSARTAN 25 MG TAB PO SCH (09:00)
[2020-11-06] MEDS ORDERED: CYANOCOBALAMIN 500 MCG TAB PO SCH (09:00)
[2020-11-06] MEDS ORDERED: NON FORMULARY DRUG (Fish Oil/Dha/Epa [Fish Oil 1,200 Mg Fish Oil] 1 EACH Capsule) PO SCH (09:00)
[2020-11-06] MEDS: atenoloL 50 MG TAB PO SCH (10:38)
[2020-11-06] MEDS: GABAPENTIN 300 MG CAP PO SCH ×2 (10:38→17:47)
[2020-11-06] MEDS: APIXABAN 5 MG TAB PO SCH (10:38)
[2020-11-06] MEDS ORDERED: LOSARTAN 25 MG TAB PO STA (10:41)
--- NOTE | 2020-11-06 10:47 | P.HPIM ---
History of Present Illness H&P Date: 11/06/20 HISTORY AND PHYSICAL AND DISCHARGE SUMMARY: HISTORY OF PRESENT ILLNESS This is an 89-year-old female patient of Dr. Ramírez and Dr. Bob Valentin with past medical history of mild intermittent asthma, diabetes mellitus type 2, hypertension, hyperlipidemia, hypothyroidism, paroxysmal atrial fibrillation. Patient states that she had sudden onset yesterday of chest pain that was in the midsternal area radiating to the left arm that started about as she was sitting in a chair. She has not had this before. She denies having any shortness of breath, no palpitations. She did feel a little dizzy. She denies any black stools. No headache. She states she has been taking all of her medications as directed. Patient checked her blood pressure and it was elevated greater than 200 systolic and she took an extra half atenolol and 2 baby aspirins. She then called EMS and was given aspirin and nitroglycerin which seemed to help. Patient presented to [facility] emergency center. She was afebrile, heart rate 56, blood pressure 172/98, pulse ox 94%. Chest x-ray reveals no acute cardiopulmonary process. WBC 5.5, hemoglobin 1.5, platelet count 136. INR 1.1. Sodium 134 otherwise electrolytes are normal. BUN 31 and creatinine 1.16. Blood sugar 126. Magnesium 2.0. Liver function tests were normal. ProBNP 847. Troponin have been negative on 3 draws. COVID-19 not detected. Patient was placed in the observation unit, currently weighing in the ER for about availability. Consult in place with cardiology. Patient was seen by cardiology and recommended increasing losartan 50 mg daily, change atenolol to daily instead of twice a day, continue eliquis 5 mg twice daily and plan for follow-up with Dr. Valentin in one week. Patient discharged home in stable condition. REVIEW OF SYSTEMS Constitutional: No fever, no chills, no night sweats. No weight change. No weakness, fatigue or lethargy. No daytime sleepiness. EENT: No headache. No blurred vision or double vision, no loss of vision. No loss of Hearing, no ringing in the ears, no dizziness. No nasal drainage or congestion. No epistaxis. No sore throat. Lungs: No shortness of breath, cough, no sputum production. No wheezing. Cardiovascular: Reported chest pain, no lower extremity edema. No palpitations. No paroxysmal nocturnal dyspnea. No orthopnea. Reported lightheadedness denies dizziness. No syncopal episodes. Abdominal: No abdominal pain. No nausea, vomiting. No diarrhea. No constipation. No bloody or tarry stools.. No loss of appetite. Genitourinary: No dysuria, increased frequency, urgency. No urinary retention. Musculoskeletal: No myalgias. No muscle weakness, no gait dysfunction, no frequent falls. No back pain. No neck pain. Integumentary: No wounds, no lesions. No rash or pruritus. No unusual bruising. No change in hair or nails. Neurologic: No aphasia. No facial droop. No change in mentation. No head injury. No headache. No paralysis. No paresthesia. Psychiatric: No depression. No anxiety. Endocrine: No abnormal blood sugars. No weight change. SOCIAL HISTORY Patient is a lifelong nonsmoker. No marijuana, no illicit drug use, no alcohol use. She lives alone. She uses a walker occasionally. FAMILY HISTORY Mother at age 59 from ovarian cancer, father at age 87 from myocardial infarction. Patient had total of 3 brothers and one is alive with history of CVA. One brother has from myocardial infarction and 1 from pneumonia. Patient does not have any sisters. Patient has 3 children and one son has from hepatitis C and one from DVT/pulmonary embolism. One son is alive with no major medical problems. PHYSICAL EXAMINATION Gen: This is an 89-year-old female. Patient is resting in bed and appears to be comfortable and in no acute distress. She is currently chest pain-free. HEENT: Head is atraumatic, normocephalic. Pupils equal, round. Sclerae is anicteric. NECK: Supple. No JVD. No lymphadenopathy. No thyromegaly. LUNGS: Clear to auscultation. No wheezes or rhonchi. No intercostal retractions. HEART: Regular rate and rhythm. Systolic murmur. ABDOMEN: Soft. Bowel sounds are present. No masses. No tenderness. EXTREMITIES: No pedal edema. No calf tenderness. Dorsalis pedis palpable bilaterally. NEUROLOGICAL: Patient is awake, alert and oriented x3. Cranial nerves 2 through 12 are grossly intact. ASSESSMENT AND PLAN 1. Chest pain with negative troponins, acute coronary syndrome ruled out. Consult with cardiology. 2. Hypertensive urgency. Losartan increased to 50 mg daily, continue atenolol 50 mg twice daily. 3. Paroxysmal atrial fibrillation. Continue eliquis 5 mg twice daily, atenolol 59 g twice daily. 4. Diabetes mellitus type 2, diet controlled 5. Mild intermittent asthma. Continue Singulair 10 mg at bedtime, Combivent inhaler as needed, Advair twice daily. 6. Hyperlipidemia. Continue Fish oil. 7. Hypothyroidism. Continue levothyroxine 100 g daily. TSH and free T4 ordered. 8. Thrombocytopenia. Patient will need workup as an outpatient. Patient placed on the observation unit. DISCHARGE PLAN Home Discharge Medication List Levothyroxine Sodium [Synthroid] 100 mcg PO DAILY 02/03/15 [History] Montelukast [Singulair] 10 mg PO HS 02/03/15 [History] Multivitamins, Thera [Multivitamin (formulary)] 1 tab PO DAILY 02/03/15 [Histor y] Fish Oil/Dha/Epa [Fish Oil 1,200 mg Fish Oil] 1 cap PO DAILY 10/28/18 [History] Fluticasone/Salmeterol [Advair 500-50 Diskus] 1 puff INHALATION RT-BID 10/28/18 [History] Cyanocobalamin (Vitamin B-12) [Vitamin B-12] 1,000 mcg PO DAILY 08/13/19 [History] Gabapentin [Neurontin] 300 mg PO TID 08/13/19 [History] Apixaban [Eliquis] 5 mg PO BID #60 tab 08/15/19 [Rx] Latanoprost/Pf [Latanoprost 0.005% Eye Drop] 1 drop BOTH EYES HS 11/05/20 [History] Losartan [Cozaar] 50 mg PO DAILY 30 Days #30 tab 11/06/20 [Rx] atenoloL [Tenormin] 50 mg PO DAILY tab 11/06/20 [Rx] Impression and plan of care have been directed as dictated by the signing physician. Mariana Moore nurse practitioner acting as scribe for signing physician. Past Medical History Past Medical History: Atrial Fibrillation, Asthma, Diabetes Mellitus, Hypertension, Thyroid Disorder Additional Past Medical History / Comment(s): Seen at [facility] for vomiting, NIDDM type II-diet controlled, neuropathy bilateral feet, CKD stage III, anemia, urinary leakage, bilateral glaucoma, diverticular disease, hypothyroid. History of Any Multi-Drug Resistant Organisms: None Reported Past Surgical History: Hysterectomy Additional Past Surgical History / Comment(s): Hysterectomy then bilateral oophorectomy 10 years later, R benign breast biopsy, bladder sling, bilateral cataract removals/lens implants, colonoscopies. Past Anesthesia/Blood Transfusion Reactions: No Reported Reaction Past Psychological History: No Psychological Hx Reported Smoking Status: Never smoker Past Alcohol Use History: None Reported Past Drug Use History: None Reported - Past Family History Father Family Medical History: Cancer, Coronary Artery Disease (CAD) Additional Family Medical History / Comment(s): Father of CAD. He had prostate cancer. Mother Family Medical History: Cancer Additional Family Medical History / Comment(s): Mother of ovarian cancer. Medications and Allergies Home Medications Medication Instructions Recorded Confirmed Type Levothyroxine Sodium [Synthroid] 100 mcg PO DAILY 02/03/15 11/05/20 History Montelukast [Singulair] 10 mg PO HS 02/03/15 11/05/20 History Multivitamins, Thera [Multivitamin 1 tab PO DAILY 02/03/15 11/05/20 History (formulary)] Fish Oil/Dha/Epa [Fish Oil 1,200 1 cap PO DAILY 10/28/18 11/05/20 History mg Fish Oil] Fluticasone/Salmeterol [Advair 1 puff INHALATION RT-BID 10/28/18 11/05/20 History 500-50 Diskus] Cyanocobalamin (Vitamin B-12) 1,000 mcg PO DAILY 08/13/19 11/05/20 History [Vitamin B-12] Gabapentin [Neurontin] 300 mg PO TID 08/13/19 11/05/20 History Apixaban [Eliquis] 5 mg PO BID #60 tab 08/15/19 11/05/20 Rx Latanoprost/Pf [Latanoprost 0.005% 1 drop BOTH EYES HS 11/05/20 11/05/20 History Eye Drop] Losartan [Cozaar] 50 mg PO DAILY 30 Days #30 tab 11/06/20 Rx atenoloL [Tenormin] 50 mg PO DAILY tab 11/06/20 Rx Allergies Allergy/AdvReac Type Severity Reaction Status Date / Time Sulfa (Sulfonamide Allergy Unknown Verified 11/05/20 17:02 Antibiotics) Physical Exam Vitals: Vital Signs Temp Pulse Resp BP Pulse Ox 11/06/20 06:15 97.6 F 55 L 18 160/79 96 11/06/20 01:00 97.8 F 58 L 18 148/88 96 11/05/20 18:37 57 L 16 142/84 95 11/05/20 17:41 97.9 F 61 16 179/101 97 11/05/20 16:44 57 L 16 176/103 98 11/05/20 15:11 56 L 16 146/83 95 11/05/20 14:08 98.1 F 56 L 16 172/98 94 L Results CBC & Chem 7: 11/06/20 05:19 11/06/20 05:19 Labs: Abnormal Lab Results - Last 24 Hours (Table) 11/05/20 11/05/20 11/06/20 Range/Units 14:20 14:20 05:19 RBC 3.66 L 3.74 L (3.80-5.40) m/uL Hgb 11.3 L (11.4-16.0) gm/dL Hct 31.9 L 32.9 L (34.0-46.0) % Plt Count 136 L 115 L (150-450) k/uL Lymphocytes # 0.9 L 0.9 L (1.0-4.8) k/uL Sodium 134 L (137-145) mmol/L BUN 31 H (7-17) mg/dL Creatinine 1.16 H (0.52-1.04) mg/dL Glucose 126 H (74-99) mg/dL 11/06/20 Range/Units 05:19 RBC (3.80-5.40) m/uL Hgb (11.4-16.0) gm/dL Hct (34.0-46.0) % Plt Count (150-450) k/uL Lymphocytes # (1.0-4.8) k/uL Sodium 135 L (137-145) mmol/L BUN 26 H (7-17) mg/dL Creatinine 1.07 H (0.52-1.04) mg/dL Glucose 127 H (74-99) mg/dL
[2020-11-06 12:00] VITALS: TEMP 98
[2020-11-06] MEDS ORDERED: amLODIPine 5 MG TAB PO SCH (12:00)
--- NOTE | 2020-11-06 12:45 | P.CRDCN ---
History of Present Illness History of present illness: This is a pleasant 89 year old female with history of atrial fibrillation (on Eliquis), hypertension, type 2 diabetes, hyperlipidemia, asthma, hypothyroidism, presented to the hospital with symptoms of chest discomfort. Patient states that she had sudden onset of chest tightness y day at 11:30 am while watching TV. Chest tightness is midsternal area radiating to the left arm that started about as she was sitting in a chair. She denies having any shortness of breath, lightheadedness, diaphoresis, nausea or palpitations. She had some mild dizziness when standing up. Patient checked her blood pressure and it was elevated greater than 200 systolic and she took an extra half of her atenolol and 2 81mg Aspirins. She then called EMS and was given aspirin and nitroglycerin which she states helped resolve her chest pain. Laboratory data reviewed, troponins negative 3, COVID-19 negative, Sodium 135, K 4.3, BUN 26, serum creatinine 1.07 (baseline for patient), TSH within normal limits, magnesium 2.0. Vital signs blood pressure 160/79 heart rate 93, maintaining oxygen saturation is on room air, afebrile. Current home cardiac medications include atenolol 50mg BID, Eliquis 5mg BID, Losartan 25mg daily. DIAGNOSTICS EKG reveals sinus bradycardia HR 46,no significant ST-T Wave abnormalities. Prior EKG in sinus rhythm CXR negative for any acute cardiopulmonary process REVIEW OF SYSTEMS At the time of my exam: CONSTITUTIONAL: Denies fever or chills. CARDIOVASCULAR: + chest pain, Denies shortness of breath, orthopnea, PND or palpitations. RESPIRATORY: Denies cough. GASTROINTESTINAL: Denies abdominal pain, diarrhea, constipation, nausea or vomiting. MUSCULOSKELETAL: Denies myalgias. NEUROLOGIC: Denies numbness, tingling, headacbe or weakness. ENDOCRINE: Denies fatigue, weight change, polydipsia or polyurina. GENITOURINARY: Denies burning, hematuria or urgency with micturation. HEMATOLOGIC: Denies history of anemia or bleeding. PHYSICAL EXAMINATION CONSTITUTIONAL: No apparent distress. HEENT: Head is normocephalic. Pupils are equal, round. Sclerae anicteric. Mucous membranes of the mouth are moist. No JVD. No carotid bruit. CHEST EXAMINATION: Lungs are clear to auscultation. No chest wall tenderness is noted on palpation or with deep breathing. HEART EXAMINATION: Regular rate and rhythm. S1, S2 heard. No murmurs, gallops or rub. ABDOMEN: Soft, nontender. Positive bowel sounds. EXTREMITIES: 2+ peripheral pulses, no lower extremity edema and no calf tenderness. SKIN: intact NEUROLOGIC EXAMINATION: Patient is awake, alert and oriented x3. ASSESSMENT Chest pain, atypical- acute coronary event ruled out. Paroxysmal Atrial fibrillation- in normal sinus rhythm/sinus bradycardia Sinus Bradycardia Hypertension Type 2 diabetes Hyperlipidemia Asthma Hypothyroidism PLAN An acute coronary event has been ruled out with no EKG evidence of ischemia and negative cardiac enzymes. Increase Losartan to 50mg daily Metoprolol tartrate 50mg daily instead of BID Continue Eliquis 5mg BID Patient can be discharged from cardiology perspective, follow up outpatient with Dr. Valentin in 1 week. Thank you kindly for this consultation. Nurse Practitioner note has been reviewed, I agree with a documented findings and plan of care. Patient was seen and examined. Past Medical History Past Medical History: Atrial Fibrillation, Asthma, Diabetes Mellitus, Hypertension, Thyroid Disorder Additional Past Medical History / Comment(s): Seen at [facility] for vomiting, NIDDM type II-diet controlled, neuropathy bilateral feet, CKD stage III, anemia, urinary leakage, bilateral glaucoma, diverticular disease, hypothyroid. History of Any Multi-Drug Resistant Organisms: None Reported Past Surgical History: Hysterectomy Additional Past Surgical History / Comment(s): Hysterectomy then bilateral oophorectomy 10 years later, R benign breast biopsy, bladder sling, bilateral cataract removals/lens implants, colonoscopies. Past Anesthesia/Blood Transfusion Reactions: No Reported Reaction Past Psychological History: No Psychological Hx Reported Smoking Status: Never smoker Past Alcohol Use History: None Reported Past Drug Use History: None Reported - Past Family History Father Family Medical History: Cancer, Coronary Artery Disease (CAD) Additional Family Medical History / Comment(s): Father of CAD. He had prostate cancer. Mother Family Medical History: Cancer Additional Family Medical History / Comment(s): Mother of ovarian cancer. Medications and Allergies Home Medications Medication Instructions Recorded Confirmed Type Ipratropium/Albuterol Sulfate 1 puff INHALATION RT-QID 02/03/15 11/05/20 History [Combivent Respimat Inhaler] Levothyroxine Sodium [Synthroid] 100 mcg PO DAILY 02/03/15 11/05/20 History Montelukast [Singulair] 10 mg PO HS 02/03/15 11/05/20 History Multivitamins, Thera [Multivitamin 1 tab PO DAILY 02/03/15 11/05/20 History (formulary)] Fish Oil/Dha/Epa [Fish Oil 1,200 1 cap PO DAILY 10/28/18 11/05/20 History mg Fish Oil] Fluticasone/Salmeterol [Advair 1 puff INHALATION RT-BID 10/28/18 11/05/20 History 500-50 Diskus] Cyanocobalamin (Vitamin B-12) 1,000 mcg PO DAILY 08/13/19 11/05/20 History [Vitamin B-12] Gabapentin [Neurontin] 300 mg PO TID 08/13/19 11/05/20 History Apixaban [Eliquis] 5 mg PO BID #60 tab 08/15/19 11/05/20 Rx Latanoprost/Pf [Latanoprost 0.005% 1 drop BOTH EYES HS 11/05/20 11/05/20 History Eye Drop] Losartan [Cozaar] 50 mg PO DAILY 30 Days #30 tab 11/06/20 Rx atenoloL [Tenormin] 50 mg PO DAILY tab 11/06/20 Rx Allergies Allergy/AdvReac Type Severity Reaction Status Date / Time Sulfa (Sulfonamide Allergy Unknown Verified 11/05/20 17:02 Antibiotics) Physical Exam Vitals: Vital Signs Temp Pulse Resp BP Pulse Ox 11/06/20 06:15 97.6 F 55 L 18 160/79 96 11/06/20 01:00 97.8 F 58 L 18 148/88 96 11/05/20 18:37 57 L 16 142/84 95 11/05/20 17:41 97.9 F 61 16 179/101 97 11/05/20 16:44 57 L 16 176/103 98 11/05/20 15:11 56 L 16 146/83 95 11/05/20 14:08 98.1 F 56 L 16 172/98 94 L Results 11/06/20 05:19 11/06/20 05:19 Cardiac Enzymes 11/05/20 11/05/20 11/05/20 Range/Units 14:20 14:20 17:43 AST 28 (14-36) U/L Troponin I <0.012 <0.012 (0.000-0.034) ng/mL 11/05/20 Range/Units 20:30 AST (14-36) U/L Troponin I <0.012 (0.000-0.034) ng/mL Coagulation 11/05/20 Range/Units 14:20 PT 11.3 (9.0-12.0) sec APTT 27.9 (22.0-30.0) sec CBC 11/05/20 11/06/20 Range/Units 14:20 05:19 WBC 5.5 4.9 (3.8-10.6) k/uL RBC 3.66 L 3.74 L (3.80-5.40) m/uL Hgb 11.5 11.3 L (11.4-16.0) gm/dL Hct 31.9 L 32.9 L (34.0-46.0) % Plt Count 136 L 115 L (150-450) k/uL Comprehensive Metabolic Panel 11/05/20 11/06/20 Range/Units 14:20 05:19 Sodium 134 L 135 L (137-145) mmol/L Potassium 4.8 4.3 (3.5-5.1) mmol/L Chloride 100 102 (98-107) mmol/L Carbon Dioxide 24 28 (22-30) mmol/L BUN 31 H 26 H (7-17) mg/dL Creatinine 1.16 H 1.07 H (0.52-1.04) mg/dL Glucose 126 H 127 H (74-99) mg/dL Calcium 9.5 9.5 (8.4-10.2) mg/dL AST 28 (14-36) U/L ALT 17 (4-34) U/L Alkaline Phosphatase 66 (38-126) U/L Total Protein 7.1 (6.3-8.2) g/dL Albumin 4.2 (3.5-5.0) g/dL Current Medications Generic Name Dose Route Start Last Admin Trade Name Freq PRN Reason Stop Dose Admin Albuterol/Ipratropium 3 ml 11/06/20 08:00 Ipratropium-Albuterol 3 Ml Neb INHALATION RT-QID ALEXIA Apixaban 5 mg 11/05/20 21:00 11/05/20 22:21 Apixaban 5 Mg Tab PO 5 mg BID ALEXIA Administration Atenolol 50 mg 11/05/20 21:00 11/05/20 22:21 Atenolol 50 Mg Tab PO 50 mg BID ALEXIA Administration Budesonide/Formoterol Fumarate 1 puff 11/06/20 08:00 Symbicort 160-4.5 Mcg Inhaler INHALATION RT-BID ALEXIA Cyanocobalamin 1,000 mcg 11/06/20 09:00 Cyanocobalamin 500 Mcg Tab PO DAILY ALEXIA Gabapentin 300 mg 11/05/20 22:00 11/05/20 22:21 Gabapentin 300 Mg Cap PO 300 mg TID ALEXIA Administration Latanoprost 1 drops 11/05/20 21:00 11/05/20 22:22 Latanoprost 0.005% Ophth Drops 2.5 Ml Btl BOTH EYES 1 drops HS ALEXIA Administration Levothyroxine Sodium 100 mcg 11/06/20 06:30 11/06/20 06:27 Levothyroxine 100 Mcg Tab PO 100 mcg DAILY@0630 ALEXIA Administration Losartan Potassium 25 mg 11/06/20 09:00 Losartan 25 Mg Tab PO DAILY ALEXIA Montelukast Sodium 10 mg 11/05/20 21:00 11/05/20 22:22 Montelukast 10 Mg Tab PO 10 mg HS ALEXIA Administration Multivitamins 1 each 11/06/20 09:00 Multivitamins, Thera 1 Each Tab PO DAILY ALEXIA Naloxone HCl 0.2 mg 11/05/20 16:49 Naloxone 0.4 Mg/Ml 1 Ml Vial IV Q2M PRN Opioid Reversal 11/06/20 05:19 11/06/20 05:19
[2020-11-06 18:26] VITALS: BP 138/66; PULSE 62
[2020-11-07] MEDS ORDERED: LOSARTAN 50 MG TAB PO SCH (09:00)
[2020-11-07] MEDS ORDERED: atenoloL 50 MG TAB PO SCH (09:00)
== END 2020-11-06 19:15 | disposition home or self-care (01) ==
LOC: EC 14:01 → 1SOBS 16:49 → 6NMEDSUR 11-06 16:06
PROVIDERS: ADMIT Internal Medicine; ATTEND Internal Medicine
DX: R07.89 Other chest pain (principal); I16.0 Hypertensive urgency; I48.0 Paroxysmal atrial fibrillation; I12.9 Hypertensive chronic kidney disease with stage 1 through stage 4 chronic kidney disease, or unspecified chronic kidney disease; E11.22 Type 2 diabetes mellitus with diabetic chronic kidney disease; N18.30 Chronic kidney disease, stage 3 unspecified; E11.40 Type 2 diabetes mellitus with diabetic neuropathy, unspecified; E03.9 Hypothyroidism, unspecified; E78.5 Hyperlipidemia, unspecified; J45.20 Mild intermittent asthma, uncomplicated; D69.6 Thrombocytopenia, unspecified; R42 Dizziness and giddiness; R00.1 Bradycardia, unspecified; D64.9 Anemia, unspecified; G62.9 Polyneuropathy, unspecified; H40.9 Unspecified glaucoma; Z90.710 Acquired absence of both cervix and uterus; Z79.01 Long term (current) use of anticoagulants; Z79.890 Hormone replacement therapy; Z79.899 Other long term (current) drug therapy; Z88.2 Allergy status to sulfonamides; Z79.84 Long term (current) use of oral hypoglycemic drugs; Z20.822 Contact with and (suspected) exposure to COVID-19; Z96.1 Presence of intraocular lens; Z82.49 Family history of ischemic heart disease and other diseases of the circulatory system; Z80.41 Family history of malignant neoplasm of ovary; Z80.42 Family history of malignant neoplasm of prostate; Z82.3 Family history of stroke; Z82.5 Family history of asthma and other chronic lower respiratory diseases; Z83.79 Family history of other diseases of the digestive system
CPT/HCPCS: 96374; 99285; 36415; 94640 ×2; 93005; 83880; 80053; 80048; 84443; 83735; 84484; 85025 ×2; 85610; 85730; 87635; 71046; G0378 ×3; J2060

== ENCOUNTER 2021-10-23 02:23 | Emergency (ER) | payer MEDICARE, BC ==
[2021-10-23 02:30] VITALS: RESP 18
[2021-10-23] MEDS ORDERED: SODIUM CHLORIDE 0.9% 1,000 ML IV STA (02:34)
--- NOTE | 2021-10-23 02:34 | ED ---
Chest Pain HPI - General Chief Complaint: Chest Pain Stated Complaint: Chest Pain Time Seen by Provider: 10/23/21 02:33 Source: patient, EMS, RN notes reviewed, old records reviewed Mode of arrival: EMS Limitations: no limitations - History of Present Illness Initial Comments: This is an 89-year-old female to the ER today for evaluation. Patient presents today for evaluation of chest pain and elevated blood pressure. Ration notice to have elevated blood pressure at home with chest pain chest pain started first and then she noticed that her blood pressure was elevated. Patient difficulty sleeping after she noticed this is been called EMS evaluation. Patient had similar pain earlier today. Although chest pain is improved patient states blood pressure still remaining high in coming in for evaluation. Otherwise no new complaints MD Complaint: chest pain, other (Elevated blood pressure) -: hour(s) Onset: during rest Pain Location: right chest Pain Radiation: none Severity: mild Severity scale (1-10): 3 Quality: tightness Consistency: constant, now resolved Improves With: nothing Worsens With: nothing Context: other (none) Anginal Symptoms: other (none) Other Symptoms: other (none) Treatments Prior to Arrival: none - Related Data Home Medications Medication Instructions Recorded Confirmed Levothyroxine Sodium [Synthroid] 100 mcg PO DAILY 02/03/15 11/05/20 Montelukast [Singulair] 10 mg PO HS 02/03/15 11/05/20 Multivitamins, Thera [Multivitamin 1 tab PO DAILY 02/03/15 11/05/20 (formulary)] Fish Oil/Dha/Epa [Fish Oil 1,200 1 cap PO DAILY 10/28/18 11/05/20 mg Fish Oil] Fluticasone/Salmeterol [Advair 1 puff INHALATION RT-BID 10/28/18 11/05/20 500-50 Diskus] Cyanocobalamin (Vitamin B-12) 1,000 mcg PO DAILY 08/13/19 11/05/20 [Vitamin B-12] Gabapentin [Neurontin] 300 mg PO TID 08/13/19 11/05/20 Latanoprost/Pf [Latanoprost 0.005% 1 drop BOTH EYES HS 11/05/20 11/05/20 Eye Drop] Previous Rx's Medication Instructions Recorded Apixaban [Eliquis] 5 mg PO BID #60 tab 08/15/19 Losartan [Cozaar] 50 mg PO DAILY 30 Days #30 tab 11/06/20 atenoloL [Tenormin] 50 mg PO DAILY tab 11/06/20 Allergies Allergy/AdvReac Type Severity Reaction Status Date / Time Sulfa (Sulfonamide Allergy Unknown Verified 11/05/20 17:02 Antibiotics) Review of Systems ROS Statement: Those systems with pertinent positive or pertinent negative responses have been documented in the HPI. ROS Other: All systems not noted in ROS Statement are negative. Past Medical History Past Medical History: Atrial Fibrillation, Asthma, Diabetes Mellitus, Hypertension, Thyroid Disorder Additional Past Medical History / Comment(s): Seen at [facility] for vomiting, NIDDM type II-diet controlled, neuropathy bilateral feet, CKD stage III, anemia, urinary leakage, bilateral glaucoma, diverticular disease, hypothyroid. History of Any Multi-Drug Resistant Organisms: None Reported Past Surgical History: Hysterectomy Additional Past Surgical History / Comment(s): Hysterectomy then bilateral oophorectomy 10 years later, R benign breast biopsy, bladder sling, bilateral cataract removals/lens implants, colonoscopies. Past Anesthesia/Blood Transfusion Reactions: No Reported Reaction Past Psychological History: No Psychological Hx Reported Smoking Status: Never smoker Past Alcohol Use History: None Reported Past Drug Use History: None Reported - Past Family History Father Family Medical History: Cancer, Coronary Artery Disease (CAD) Additional Family Medical History / Comment(s): Father of CAD. He had prostate cancer. Mother Family Medical History: Cancer Additional Family Medical History / Comment(s): Mother of ovarian cancer. General Exam General appearance: alert, in no apparent distress Head exam: Present: atraumatic, normocephalic, normal inspection Eye exam: Present: normal appearance, PERRL, EOMI. Absent: scleral icterus, conjunctival injection, periorbital swelling ENT exam: Present: normal exam, mucous membranes moist Neck exam: Present: normal inspection. Absent: tenderness, meningismus, lymphadenopathy Respiratory exam: Present: normal lung sounds bilaterally. Absent: respiratory distress, wheezes, rales, rhonchi, stridor Cardiovascular Exam: Present: regular rate, normal rhythm, normal heart sounds. Absent: systolic murmur, diastolic murmur, rubs, gallop, clicks GI/Abdominal exam: Present: soft, normal bowel sounds. Absent: distended, tenderness, guarding, rebound, rigid Extremities exam: Present: normal inspection, full ROM, normal capillary refill. Absent: tenderness, pedal edema, joint swelling, calf tenderness Back exam: Present: normal inspection Neurological exam: Present: alert, oriented X3, CN II-XII intact Psychiatric exam: Present: normal affect, normal mood Skin exam: Present: warm, dry, intact, normal color. Absent: rash Course Vital Signs 10/23/21 02:25 Pulse Rate 59 L Respiratory 18 Rate Blood Pressure 184/94 O2 Sat by Pulse 95 Oximetry - Reevaluation(s) Reevaluation #1: 10/23/21 05:11 Medical records reviewed Reevaluation #2: 10/23/21 05:11 Patient still remains without chest pain here in the ER Reevaluation #3: 10/23/21 05:11 Patient's blood pressure has improved Reevaluation #4: 10/23/21 05:11 Patient informed of results and questions answered Chest Pain MDM - MDM 89 female to the ER for evaluation of chest pain and elevated blood pressure of pressures improved no chest pain throughout ER stay. Patient can be discharged home Disposition Clinical Impression: Chest pain, Atypical chest pain, Hypertension Disposition: HOME SELF-CARE Condition: Good Instructions (If sedation given, give patient instructions): Chest Pain (ED) Is patient prescribed a controlled substance at d/c from ED?: No Referrals: Robert Ramírez MD [Primary Care Provider] - 1-2 days
--- NOTE | 2021-10-23 03:01 | XR ---
EXAMINATION TYPE: XR chest 1V portable DATE OF EXAM: 10/23/2021 COMPARISON: 11/05/2020 HISTORY: Chest pain TECHNIQUE: Single view FINDINGS: There is no heart failure nor confluent pneumonic infiltrate. Costophrenic angles are clear . There are no hilar masses. Thoracic aorta is atheromatous. There is slight thoracic dextroscoliosis . Heart size is fairly normal. IMPRESSION: No active cardiopulmonary disease. No change.
[2021-10-23] MEDS ORDERED: hydrALAZINE HCL 20 MG/ML 1 ML VIAL IVP STA (03:57)
[2021-10-23 04:18] LABS: Basophils # (A) 0.1 k/uL (0-0.2); Basophils % (A) 1 %; Eosinophils # (A) 0.2 k/uL (0-0.7); Eosinophils % (A) 4 %; HCT 33.2 % (34.0-46.0); HGB 11.1 gm/dL (11.4-16.0); Lymphocytes # (A) 0.8 k/uL (1.0-4.8); Lymphocytes % (A) 17 %; MCHC 33.4 g/dL (31.0-37.0); MCV 92.8 fL (80.0-100.0); Mean Platelet Volume 8.3; Monocytes # (A) 0.4 k/uL (0-1.0); Monocytes % (A) 8 %; Neutrophils # (A) 3.4 k/uL (1.3-7.7); Neutrophils % (A) 69 %; Platelet Count 130 k/uL (150-450); RBC 3.58 m/uL (3.80-5.40); RDW 14.2 % (11.5-15.5); WBC 4.9 k/uL (3.8-10.6)
[2021-10-23 04:27] LABS: Albumin 4.1 g/dL (3.5-5.0); Calcium 9.2 mg/dL (8.4-10.2); Potassium 4.3 mmol/L (3.5-5.1); Total Bilirubin 0.5 mg/dL (0.2-1.3)
[2021-10-23 04:29] LABS: INR 1.1 (<1.2); Partial Thromboplastin Time 29.6 sec (22.0-30.0); Prothrombin Time 11.4 sec (9.0-12.0)
[2021-10-23 07:05] VITALS: BP 169/92; PULSE 59; TEMP 97.8
== END 2021-10-23 07:29 | disposition home or self-care (01) ==
LOC: EC 02:23
DX: R07.89 Other chest pain (principal); E11.22 Type 2 diabetes mellitus with diabetic chronic kidney disease; I12.9 Hypertensive chronic kidney disease with stage 1 through stage 4 chronic kidney disease, or unspecified chronic kidney disease; N18.30 Chronic kidney disease, stage 3 unspecified; I48.91 Unspecified atrial fibrillation; J45.909 Unspecified asthma, uncomplicated; E07.9 Disorder of thyroid, unspecified; Z79.01 Long term (current) use of anticoagulants; Z88.2 Allergy status to sulfonamides; Z90.710 Acquired absence of both cervix and uterus
CPT/HCPCS: 99285; 96374; 96361 ×2; 36415; 93005; 83880; 80053; 83690; 83735; 84484; 85025; 85610; 85730; 71045; J0360

== ENCOUNTER → 2022-06-13 | Outpatient (CLI) | payer MEDICARE, BC ==
--- NOTE | 2022-06-14 08:09 | MM ---
Reason for Exam: Screening (asymptomatic). Last mammogram was performed 1 year(s) and 9 month(s) ago. Patient History: Menarche at age 16. First Full-Term at age 21. Left ovary removed at age 55. Right ovary removed at age 55. Hysterectomy at age 45. Postmenopausal. Estrogen for 18 years from age 55 until age 73. 2004, Benign Excisional Biopsy on the right side. Prior Study Comparison: 07/15/2016 Bilateral Screening Mammogram, [facility]. 10/29/2017 Bilateral Screening Mammogram, [facility] 09/25/2020 Bilateral Diagnostic Mammogram, [facility]. Tissue Density: The breast tissue is heterogeneously dense. This may lower the sensitivity of mammography. Findings: Analyzed By CAD. There is no suspicious group of microcalcifications or new suspicious mass in either breast. Overall Assessment: Benign, BI-RAD 2 Management: Screening Mammogram of both breasts in 1 year. A clinical breast exam by your physician is recommended on an annual basis and results should be correlated with mammographic findings. Electronically signed and approved by: Rajinder Todd M.D. Radiologis
== END | disposition home or self-care (01) ==
LOC: RADMAMWWP 10:43
PROVIDERS: ATTEND Family Medicine
DX: Z12.31 Encounter for screening mammogram for malignant neoplasm of breast (principal); Z78.0 Asymptomatic menopausal state; Z98.890 Other specified postprocedural states
CPT/HCPCS: 77063; 77067